=== PATIENT | male | born 1975 | race African-American/Black ===

== ENCOUNTER 2020-02-25 15:17 | Outpatient (REF) | payer OTHER, SELFPAY ==
--- NOTE | 2020-02-25 15:26 | XR_ITS ---
EXAMINATION: XR HIP, RIGHT CLINICAL INFORMATION: Pain COMPARISON: None TECHNIQUE: Two views of the right hip. FINDINGS: Bone alignment is normal. No fracture, dislocation or bone lesion is seen. The hip joint is normal. There is soft tissue calcification adjacent to the right greater trochanter questionable for trochanteric bursitis. Soft tissues are otherwise unremarkable. XR/XR hip RT w PEL1V IMPRESSION: Soft tissue calcification adjacent to the right greater trochanter questionable for calcific bursitis.
== END 2020-02-25 15:18 | disposition home or self-care (01) ==
LOC: HO.XRAY 15:17
PROVIDERS: PCP Internal Medicine; Visit Provider Internal Medicine
DX: M25.551 Pain in right hip (principal)
CPT/HCPCS: 73502

== ENCOUNTER 2020-03-25 15:00 | Outpatient (RCR) | payer OTHER, SELFPAY ==
--- NOTE | 2020-03-18 17:13 | MHC.PT.EP ---
[facility] [place] [facility] [place] [facility] [place] [facility] [address] Delia Wilcox [address] [phone] F: [phone] F: [phone] F: [phone] F: [phone] Physical Therapy Plan of Care Date of Evaluation: 03/18/20 Date of Surgery: N/A Diagnosis: trochanteric bursitis of Assessment: pt presents w/ radiographic evidence of calcific bursitis. pt would benefit from stretching and strengthening program as well as iontophoresis intervention. pt presents to physical therapy with pain, decreased range of motion, decreased strength, impaired functional mobility, impaired postural awareness, and gait deviations. pt is a good candidate for skilled PT due to age, potential remediation of impairments, typical disease/condition progression and prognosis, comorbidities, and motivation. pt would benefit from tailored strengthening and stretching exercise program, functional training, gait training, postural re-training, neuromuscular re-education, modalities as needed for pain, equipment safety demonstration. Frequency and Duration: The patient will be seen 2x/wk for 5 wks Short Term Goals: pt will be I w/ HEP to promote self-management of condition. pt will improve R hip ABD strength by 1 MMT grade to remediate gait impairments on even ground. [employer] Goals: pt will report <2/10 R hip pain w/ ascending/descending 3 stairs w/ LRAD to facilitate getting in and out of equipment at work. pt will report statistically significant improvement in self-reported outcome measure, LEFI, to facilitate return to PLOF. Treatment Plan: Modalities to reduce pain, spasms and effusion. Manual therapy to restore motion and function. Therapeutic exercise to improve strength and flexibility. Neuromuscular re-education for posture and balance. Therapeutic activities to return to functional activities of daily living. Electronically signed by: Gilda King PT, DPT Please sign and return to therapist. Thank you for your referral.
--- NOTE | 2020-04-15 16:29 | MHC.PT.DC ---
[facility] [place] [facility] [place] Office [place] Office [address] Delia Wilcox [address] [phone] F: [phone] F: [phone] F: [phone] F: [phone] Physical Therapy Discharge Report Diagnosis: trochanteric bursitis of Date of Surgery: N/A Date of Evaluation: 03/18/20 Date of Discharge: 04/15/20 Treatments to Date: 3 Cancellations to Date: 1 No Shows to Date: 5 Discharge Status: Visit Non-compliance Discharge Summary: The patient has not been seen in three weeks. He has no showed five consecutive appointments. Per [facility] policy, which the patient was aware of and signed, he is being discharged due to non-compliance. He has received two doses of dexamethasone delivered via iontophoresis. Electronically signed by: Gilda King PT, DPT Please sign and return to therapist. Thank you for your referral.
== END 2020-04-15 16:29 | disposition other institution (70) ==
LOC: HO.PT 15:00
PROVIDERS: PCP Internal Medicine; Visit Provider Internal Medicine
DX: M70.61 Trochanteric bursitis, right hip (principal)
CPT/HCPCS: 97033; 97110; 97161

== ENCOUNTER 2020-09-12 07:59 | Outpatient (REF) | payer OTHER, SELFPAY ==
[2020-09-12 10:24] LABS: Alanine Aminotransferase 53 U/L (0-40); Albumin Level 4.3 g/dL (3.5-5.0); Alkaline Phosphatase 92 U/L (39-117); Anion Gap 12 (12-20); Aspartate Amino Transferase 26 U/L (5-37); Bilirubin Total 1.4 mg/dL (0.0-1.0); Blood Urea Nitrogen 19 mg/dL (9-16); Calcium 9.6 mg/dL (8.4-10.2); Carbon Dioxide 24 mmol/L (22-29); Chloride 107 mmol/L (96-108); Cholesterol 187 mg/dL; Estimated Glomerular Filt Rate > 60; Glucose Fasting 99 mg/dL (60-99); HDL Cholesterol 38 mg/dL; LDL Cholesterol Calculated 127 mg/dl; Potassium 4.3 mmol/L (3.3-5.1); Sodium 139 mmol/L (135-145); Total Protein 7.4 g/dL (6.5-8.0); Triglycerides 111 mg/dL
[2020-09-12 10:46] LABS: Thyroid Stimulating Hormone 1.09 uIU/mL (0.32-4.0)
== END 2020-09-12 08:00 | disposition home or self-care (01) ==
LOC: HO.LAB 07:59
PROVIDERS: PCP Internal Medicine; Visit Provider Internal Medicine
DX: E78.5 Hyperlipidemia, unspecified (principal); Z83.49 Family history of other endocrine, nutritional and metabolic diseases
CPT/HCPCS: 36415; 80053; 80061; 84443

== ENCOUNTER 2021-01-01 13:01 | Emergency (ER) | payer OTHER, SELFPAY ==
--- NOTE | ~2021-01-01 | XR_ITS ---
EXAMINATION: XR HAND, RIGHT CLINICAL INFORMATION: Trauma. Bleeding COMPARISON: None TECHNIQUE: PA, lateral, and oblique views of the right hand. FINDINGS: No definite acute fracture or dislocation is evident. There is a submillimeter bony density about the ulnar aspect base of the second middle phalanx likely related to previous trauma however acute injury is not ruled out but seems less likely. There is also a 1 mm bony density about the radial base of the first distal phalanx likely related to previous trauma. There is a 1 mm bony density seen about the volar aspect of the third middle phalanx likely related to previous volar plate injury. Joint spaces are maintained. No erosive changes identified. No radiopaque foreign bodies. XR/XR hand RT min 3V IMPRESSION: No definite acute fracture or dislocation is evident. Multiple small bony densities likely related to previous trauma as described.
[2021-01-01 13:10] VITALS: BP 124/76; PULSE 69; RESP 18; TEMP 37.2; O2SAT 99; BMI 37.9
--- NOTE | 2021-01-01 15:12 | ED_ITS ---
HPI - Extremity Injury (Upper) General Chief Complaint: Extremity Injury, Upper Stated Complaint: finger inj-work inj Time Seen by Provider: 01/01/21 13:39 Source: patient Mode of arrival: ambulatory Limitations: no limitations History of Present Illness HPI narrative: 45-year-old male presenting to the ED with a work related injury to his right hand index finger where he was trying to load something onto 1 of the truck/shelf and it got stuck then when he pushed it and it fell/slammed onto his right index finger he noticed that he had some blood therefore he squeeze the blood out of the nail twice. He reports that he still having pain. Denies any other symptoms complaints concerns or injuries. Reports that he is not up-to-date on tetanus. complaint: injury to: right and finger (Index finger) Onset (ago): day(s) (Yesterday) Other Extremity Injury: right: fingers (Index finger) Other injuries: none Place: work Severity: moderate Relieving factors: none Exacerbating factors: other (Palpation) Related Data Previous Rx's Medication Instructions Recorded acetaminophen 500 mg tablet 1,000 mg PO QID PRN #14 tab 01/01/21 (Tylenol Extra Strength) cephalexin 500 mg capsule 500 mg PO Q6H 10 Days #40 cap 01/01/21 ibuprofen 800 mg tablet 800 mg PO Q8H PRN #14 tab 01/01/21 oxycodone 5 mg tablet 5 mg PO Q6H PRN #14 tab 01/01/21 Allergies Allergy/AdvReac Type Severity Reaction Status Date / Time No Known Allergies Allergy Verified 12/08/20 09:45 Review of Systems Review of Systems: Constitutional : No Weight loss, No Fever, No Chills, No Night Sweats, No Fatigue, No Malaise ENT/Mouth : No Hearing loss, No Ear Pain, No Nasal Congestion, No Sinus Pain, No Hoarseness, No sore throat, No Rhinorrhea, No Swallowing Difficulty Eyes: No Eye Pain, No Swelling, No Redness, No Foreign Body, No Discharge, No Vision Changes Cardiovascular : No Chest Pain, No SOB, No Dyspnea on Exertion, No Orthopnea, No Edema, No Palpitations Respiratory : No Cough, No Sputum, No Wheezing, No Smoke Exposure, No Dyspnea Gastrointestinal : No Nausea, No Vomiting, No Diarrhea, No Constipation, No abdominal Pain, No Hematochezia, No Melena Genitourinary : no irregular bleeding, No Dysuria, No Urinary Frequency, No Hematuria, No Urinary Incontinence, No Urgency, No Flank Pain, No Urinary Flow Changes, No Hesitancy Musculoskeletal : + left index finger joint pain at the nail, No Myalgias, No Joint Swelling Skin : No Skin Lesions, No rash Neuro : No Weakness, No Numbness, No Paresthesias, No Loss of Consciousness, No Dizziness, No Headache Psych : No Anxiety/Panic, No Depression, No SI/HI/AH/VH, No Social Issues, Heme/Lymph: No Bruising, No Bleeding,No Lymphadenopathy Endocrine : No Polyuria, No Polydipsia, No Temperature Intolerance Yes all other systems are reviewed and are negative [facility] Past Medical History Attestation statement: The following information was validated with the patient. Medical History Asthma Class 2 obesity with body mass index (BMI) of 38.0 to 38.9 in adult Family history of hypertension Family history of thyroid disease Polyarthralgia Presbyopia Right hip pain Surgical History No significant past surgical history Family History Family History Mother No problems noted. Father Pulmonary fibrosis Social History Social History Housing: Apartment Alcohol intake: current Alcohol intake frequency: holidays/special occasions only Alcohol type: wine Patient Tobacco Use Status: Former Tobacco user Tobacco use type: Cigarette e-Cigarette/Vaping Use: Never Used Second Hand Smoke Exposure: No Advance Directives: No Advance Directives Information Provided: No service: No Current occupational status: employed Current occupational exposures/hazards: No Physical Exam Vital Signs: Vital Signs: Last Vital Signs Temp 98.9 F 01/01/21 13:10 Pulse 69 01/01/21 13:10 Resp 18 01/01/21 13:10 BP 124/76 01/01/21 13:10 Pulse Ox 99 01/01/21 13:10 Body Mass Index 37.9 vital signs have been reviewed as normal and appeared to be correct. Blood pressure normal Heart rate normal. Respiration rate normal. Temperature normal. Oxygen saturation normal. Appearance: Alert. Oriented X3. No acute distress. Head: Normal external exam. Normocephalic. Atraumatic. Eyes: PERRLA. EOMI. Conjunctiva and sclera normal. Eyelids normal. ENT: Pharynx normal. Uvula midline. Moist mucous membranes. Neck: Normal inspection. Neck supple. FROM. CVS: Normal heart rate and rhythm. Respiratory: No respiratory distress. Painless inspiration. Skin: Skin warm and dry. Normal skin color. Normal skin turgor. No rashes/lesions/lacerations noted. Extremities: Patient with tenderness palpation to right index finger at the distal aspect right where the nail is with soft tissue swelling and ecchymosis noted it appears that he has a subungual hematoma that was already drained by hi mself per patient. Otherwise no signs of infection. He has full range of motion. No obvious ligamentous injury. Otherwise all other Extremities exhibit normal range of motion and nontender. Neuro: Oriented X 3. No motor deficit. No sensory deficit. Reflexes normal. Normal steady gait. No focal neuro deficits noted. Vascular: + radial pulses/+ 2 distal pedal pulses/+2 dorsalis pedis b/l. Normal cap refill. No cyanosis noted to upper extremity nails and lower extremity toes nails. Course Course Course Narrative: 45-year-old male presenting to the ED with a work related injury to his right hand index finger where he was trying to load something onto 1 of the truck/shelf and it got stuck then when he pushed it and it fell/slammed onto his right index finger he noticed that he had some blood therefore he squeeze the blood out of the nail twice. He reports that he still having pain. Denies any other symptoms complaints concerns or injuries. Reports that he is not up-to-date on tetanus. X-ray negative for any acute processes revealed chronic changes. Therefore will DC home with antibiotics and symptomatic treatment instructions to follow up with [facility] his primary care provider and to return if any new or worsening symptoms. Patient understands agrees with this plan. MDM - Extremity Injury (Upper) Medical Records Attestation: I reviewed the patient's medical records. Imaging Data Right hand x-ray: Attestation: I personally reviewed and interpreted this imaging study as follows: Radiologist's impression: FINDINGS: No definite acute fracture or dislocation is evident. There is a submillimeter bony density about the ulnar aspect base of the second middle phalanx likely related to previous trauma however acute injury is not ruled out but seems less likely. There is also a 1 mm bony density about the radial base of the first distal phalanx likely related to previous trauma. There is a 1 mm bony density seen about the volar aspect of the third middle phalanx likely related to previous volar plate injury. Joint spaces are maintained. No erosive changes identified. No radiopaque foreign bodies. XR/XR hand RT min 3V IMPRESSION: No definite acute fracture or dislocation is evident. ? Multiple small bony densities likely related to previous trauma as described. Discharge Plan Discharge Clinical Impression: Sprain of right index finger, Traumatic ecchymosis of finger, Subungual hematoma of index finger Patient Disposition: Home, Self-Care Instructions: Jammed Finger (ED), Subungual Hematoma (ED), Ecchymosis (ED) Prescriptions: New cephalexin 500 mg capsule 500 mg PO Q6H 10 Days Qty: 40 RF: 0 ibuprofen 800 mg tablet 800 mg PO Q8H PRN (Reason: pain) Qty: 14 RF: 0 acetaminophen [Tylenol Extra Strength] 500 mg tablet 1,000 mg PO QID PRN (Reason: fever or pain) Qty: 14 RF: 0 oxycodone 5 mg tablet 5 mg PO Q6H PRN (Reason: pain) Qty: 14 RF: 0 Referrals: [facility] [Provider Group] - 2 days Isabella Monson MD [Primary Care Provider] - 2 days Stand Alone Forms: Work/School Release Print Language: [place]
[2021-01-01] MEDS: Diphth,Pertus(ACell),Tet Adult 0.5 ML SYRINGE IM (15:16)
== END 2021-01-01 15:36 | disposition home or self-care (01) ==
PROVIDERS: Emergency Provider Emergency Medicine; PCP Internal Medicine
DX: S63.610A Unspecified sprain of right index finger, initial encounter (principal); S60.121A Contusion of right index finger with damage to nail, initial encounter; W22.09XA Striking against other stationary object, initial encounter; Y93.89 Activity, other specified; Y92.812 Truck as the place of occurrence of the external cause; Y99.0 Civilian activity done for income or pay
CPT/HCPCS: 73130; 90471; 90715; 99283; 99284

== ENCOUNTER → 2021-05-20 09:00 | Outpatient (BNVA) | payer SELFPAY | PROVIDERS: PCP Internal Medicine; Visit Provider Physician Assistant Medical | DX: Z02.79 Encounter for issue of other medical certificate (principal) ==

== ENCOUNTER 2021-06-24 08:31 | Outpatient (REF) | payer OTHER, SELFPAY ==
--- NOTE | ~2021-06-24 | US_ITS ---
EXAMINATION: US COMPLETE ABDOMEN WITH LIVER ELASTOGRAPHY CLINICAL INFORMATION: Elevation of transaminase. COMPARISON: None. TECHNIQUE: Real-time imaging of the abdominal viscera. Noninvasive ultrasound liver fibrosis assessment is performed using Boby ElastPQ point quantification shear wave elastography (2D-SWE) with a C5-2 MHz transducer. Multiple elastography samples are obtained. FINDINGS: PANCREAS: Normal. The visualized pancreatic head and body are normal in appearance. The remainder of the pancreas is obscured from visualization by the overlying bowel gas. ABDOMINAL AORTA: The proximal, middle, and distal aortic segments are normal in caliber. INFERIOR VENA CAVA: Visualized portions are normal. LIVER: The liver demonstrates normal size, contour and increased echogenicity. No focal lesion or intrahepatic biliary duct dilatation. The right lobe measures 15.1 cm in length. The left lobe measures 10.4 cm in length. Portal flow is hepatopedal. Shear wave liver elastography median stiffness is 1.69 m/s (reference: normal median stiffness is 1.3 m/s or less). IQR/median stiffness to assess sampling precision is 0.14 (reference: good quality data set is IQR/median stiffness of 0.15 or less). GALLBLADDER: Normal. The gallbladder is physiologically distended without evidence of stones, sludge, polyps, wall thickening or pericholecystic fluid. COMMON BILE DUCT: Normal in caliber measuring 0.2 cm in diameter. RIGHT KIDNEY: Normal. No hydronephrosis. No renal calculi or focal parenchymal lesions. The kidney measures 10.8 cm in maximum dimension. LEFT KIDNEY: Normal. No hydronephrosis. No renal calculi or focal parenchymal lesions. The kidney measures 11.0 cm in maximum dimension. SPLEEN: Normal. The spleen measures 11.0 cm in maximum dimension. FREE FLUID: None. US/US abdomen comp w elastography IMPRESSION: 1. Diffuse hepatic steatosis without focal lesion. 2. Liver elastography: Median liver stiffness measures 1.69 m/s corresponding to cACLD ruled out. REFERENCE: Society of Radiologists in Ultrasound Liver Stiffness Thresholds (2020): LIVER STIFFNESS THRESHOLDS: *Liver Stiffness equal or less than 1.3 m/s: High probability of being normal. *Liver Stiffness less than 1.7 m/s: In the absence of other known clinical signs, rules out compensated advanced chronic liver disease. *Liver Stiffness 1.7-2.1 m/s: Suggestive of compensated advanced chronic liver disease but need further test for confirmation. *Liver Stiffness over 2.1 m/s: Rules in compensated advanced chronic liver disease. *Liver Stiffness over 2.4 m/s: Suggestive of clinically significant portal hypertension. QUALITY OF DATA SET: *IQR/Median value equal or less than 0.15 implies a quality data set. *IQR/Median value over 0.15 implies a poor quality data set. SIGNIFICANT CHANGE FROM PRIOR EXAM: Significant change if liver stiffness measurement is 10% or greater from prior exam. OTHER CONSIDERATIONS: The stage of liver fibrosis may be overestimated in the setting of acute hepatitis, liver inflammation, elevated liver function tests, hepatic vascular congestion, obstructive cholestasis, non-fasting state, and infiltrative diseases such as amyloidosis and lymphoma. In some patients with NAFLD, the liver stiffness thresholds for compensated advanced chronic liver disease may be lower. In causes other than viral hepatitis and NAFLD, liver stiffness thresholds are not well established.
== END 2021-06-24 08:32 | disposition home or self-care (01) ==
LOC: HO.US 08:31
PROVIDERS: Visit Provider Internal Medicine
DX: R74.01 Elevation of levels of liver transaminase levels (principal)
CPT/HCPCS: 76705; 76981

== ENCOUNTER 2022-10-12 14:53 | Outpatient (AMB) | payer OTHER, SELFPAY ==
[2022-10-12 15:00] VITALS: BP 122/70; PULSE 69; TEMP 36.6; O2SAT 98; BMI 37.8
--- NOTE | 2022-10-12 15:00 | AM.OFFWIN_ITS ---
Intake Vital Signs 10/12/22 15:00 Height 5 ft 6 in Weight 234 lb BMI 37.8 BP 122/70 Blood Pressure Location Lt brachial Position Sitting Pulse 69 Pulse Source Pulse Oximeter Temp 97.9 F Temp Source Temporal Artery Scan Pulse Oximetry (%) 98 Intake Visit Reasons: EP Rash Intake Note: pt is here for c/o rash on chest and back, raised rash in patches Patient Tobacco Use Status: Former Tobacco user Allergies No Known Allergies Allergy (Verified 10/12/22 16:02) Medication List - Last Reconciled 10/12/22 by Miller Jiménez MD prednisone 60 mg (3 x 20 mg) PO DAILY Do you need a note to return to daycare/school/sports/work: Yes HPI EP Rash HPI Details 47-year-old male presents to the office for a sick visit. Patient has a rash on his chest which started 2 days ago. Predominant symptom is itching. [facility] Medical History Asthma Class 2 obesity with body mass index (BMI) of 38.0 to 38.9 in adult Family history of hypertension Family history of thyroid disease Polyarthralgia Presbyopia Right hip pain Transaminitis Surgical History No significant past surgical history Family History Mother No problems noted. Father Pulmonary fibrosis Social History Housing: Apartment Alcohol intake: current Alcohol intake frequency: holidays/special occasions only Alcohol type: wine Patient Tobacco Use Status: Former Tobacco user Tobacco use type: Cigarette e-Cigarette/Vaping Use: Never Used Second Hand Smoke Exposure: No service: No Current occupational status: employed Current occupational exposures/hazards: No Cognitive needs: No Hearing needs: No Vision needs: No Physical Exam Vital Signs: Last Vital Signs Temp 97.9 F 10/12/22 15:00 Pulse 69 10/12/22 15:00 BP 122/70 10/12/22 15:00 Pulse Ox 98 10/12/22 15:00 BMI result Body Mass Index 37.8 Skin Other: Erythematous rash on the chest extending below the left arm. Assessment & Plan Assessment & Plan (1) Irritant dermatitis: Code(s): L24.9 - Irritant contact dermatitis, unspecified cause Plan: Prednisone prescribed. If symptoms do not improve to follow-up here. Medications: New prednisone 60 mg (3 x 20 mg) PO DAILY 9 tabs 0RF Coding Level of Care Code Est Pt Level 3 (77016) Diagnoses Irritant dermatitis L24.9
== END 2022-10-12 16:57 | disposition home or self-care (01) ==
PROVIDERS: PCP Internal Medicine; Visit Provider Internal Medicine
DX: L24.9 Irritant contact dermatitis, unspecified cause (principal)
CPT/HCPCS: 99213

== ENCOUNTER 2022-10-14 14:24 | Outpatient (AMB) | payer OTHER, SELFPAY ==
[2022-10-14 14:42] VITALS: BP 120/70; PULSE 72; TEMP 36.1; O2SAT 97; BMI 38.0
--- NOTE | 2022-10-14 14:42 | AM.OFFWIN_ITS ---
Intake Vital Signs 10/14/22 14:42 Height 5 ft 6 in Weight 235 lb 8 oz BMI 38.0 BP 120/70 Blood Pressure Location Lt brachial Position Sitting Pulse 72 Pulse Source Pulse Oximeter Temp 96.9 F Temp Source Temporal Artery Scan Pulse Oximetry (%) 97 Oxygen Delivery Method Room Air Intake Visit Reasons: EP, Rash, not getting better Intake Note: Pt is here c/o having a rash that is not improving. Pt states he was seen last week in the walk in and given a topical cream, pt states he had to leave work early because he has been way to itchy even with the medication sent. Patient Tobacco Use Status: Former Tobacco user Allergies No Known Allergies Allergy (Verified 10/14/22 14:54) Medication List - Last Reconciled 10/14/22 by Miller Jiménez MD hydrocortisone 2.5% 1 appl topical BID PRN prednisone 10 mg PO DAILY Do you need a note to return to daycare/school/sports/work: No HPI EP, Rash, not getting better HPI Details 47-year-old male presents to the office for a sick visit. Patient was seen last week for a rash over his chest. Prednisone was helping the rash but it did not completely resolved. Continues to have itching symptoms. [facility] Medical History Asthma Class 2 obesity with body mass index (BMI) of 38.0 to 38.9 in adult Family history of hypertension Family history of thyroid disease Polyarthralgia Presbyopia Right hip pain Transaminitis Surgical History No significant past surgical history Family History Mother No problems noted. Father Pulmonary fibrosis Social History Housing: Apartment Alcohol intake: current Alcohol intake frequency: holidays/special occasions only Alcohol type: wine Patient Tobacco Use Status: Former Tobacco user Tobacco use type: Cigarette e-Cigarette/Vaping Use: Never Used Second Hand Smoke Exposure: No service: No Current occupational status: employed Current occupational exposures/hazards: No Cognitive needs: No Hearing needs: No Vision needs: No Physical Exam Vital Signs: Last Vital Signs Temp 96.9 F 10/14/22 14:42 Pulse 72 10/14/22 14:42 BP 120/70 10/14/22 14:42 Pulse Ox 97 10/14/22 14:42 Oxygen Delivery Method Room Air 10/14/22 14:42 BMI result Body Mass Index 38.0 Skin Other: Erythematous rash over the front of the chest. Wheals present. Assessment & Plan Assessment & Plan (1) Contact dermatitis: Code(s): L25.9 - Unspecified contact dermatitis, unspecified cause Plan: Prednisone tapering dose given. Hydrocortisone cream for symptomatic relief. Note for work given. Medications: New prednisone 6 pills by mouth day 1, 6 pills by mouth day 2, 5 pills by mouth day 3, 4 pills by mouth day 4, 3 pills by mouth day 5, 2 pills by mouth day 6, 1 pill by mouth day 7 and 1 pill by mouth day 8. 10 mg PO DAILY 28 tabs 0RF hydrocortisone 2.5% 1 appl topical BID PRN 28 grams 1RF skin irritation Coding Level of Care Code Est Pt Level 3 (59243) Diagnoses Contact dermatitis L25.9
== END 2022-10-14 16:02 | disposition home or self-care (01) ==
PROVIDERS: PCP Internal Medicine; Visit Provider Internal Medicine
DX: L25.9 Unspecified contact dermatitis, unspecified cause (principal)
CPT/HCPCS: 99213

== ENCOUNTER 2022-10-29 14:29 | Emergency (ER) | payer OTHER, SELFPAY ==
[2022-10-29 14:31] VITALS: BP 135/79; PULSE 65; RESP 19; TEMP 35.8; O2SAT 98; BMI 38.0
--- NOTE | 2022-10-29 14:33 | ED.NECK ---
HPI - Neck Pain/Injury General Chief Complaint: General Medical Stated Complaint: l side neck pain Time Seen by Provider: 10/29/22 15:17 Source: patient Mode of arrival: ambulatory Limitations: no limitations History of Present Illness HPI Narrative: Patient is a 47-year-old [place]ian-speaking male with a past medical history of transaminitis, asthma, polyarthralgia presenting to the emergency department with complaint of left lateral neck pain radiating to left shoulder since Monday. He denies any pain radiating down left arm. He denies any numbness or tingling to left arm. He denies any fall or other trauma. Denies recent heavy lifting. He denies any headaches or vision changes. He denies any chest pain or shortness of breath. He describes the pain as intermittent cramping. complaint: neck pain Onset (ago): day(s) Radiation: left lateral Severity scale (1-10): 7 Quality: aching and spasming Duration: intermittent Relieving factors: remaining still Exacerbating factors: movement of neck Associated symptoms: none Treatments prior to arrival: none Related Data Previous Rx's Medication Instructions Recorded hydrocortisone 2.5 % topical cream 1 appl topical BID PRN skin 10/14/22 irritation #28 grams prednisone 10 mg tablet 10 mg PO DAILY #28 tabs 10/14/22 cyclobenzaprine 5 mg tablet 5 mg PO TID PRN muscle spasm #12 10/29/22 tabs lidocaine 5 % topical patch 1 patch topical DAILY #15 ea 10/29/22 Allergies Allergy/AdvReac Type Severity Reaction Status Date / Time No Known Allergies Allergy Verified 10/14/22 14:54 Review of Systems Review of Systems: As per HPI. Yes all other systems are reviewed and are negative Constitutional: Constitutional: Reports as per HPI [facility] Past Medical History Medical History Asthma Class 2 obesity with body mass index (BMI) of 38.0 to 38.9 in adult Family history of hypertension Family history of thyroid disease Polyarthralgia Presbyopia Right hip pain Transaminitis Surgical History No significant past surgical history Family History Family History Mother No problems noted. Father Pulmonary fibrosis Social History Social History Housing: Apartment Alcohol intake: current Alcohol intake frequency: holidays/special occasions only Alcohol type: wine Patient Tobacco Use Status: Former Tobacco user Tobacco use type: Cigarette e-Cigarette/Vaping Use: Never Used Second Hand Smoke Exposure: No Advance Directives: No Advance Directives Information Provided: No service: No Current occupational status: employed Current occupational exposures/hazards: No Cognitive needs: No Hearing needs: No Vision needs: No Physical Exam Vital Signs: Vital Signs: Last Vital Signs Temp 96.4 F L 10/29/22 14:31 Pulse 65 10/29/22 14:31 Resp 19 10/29/22 14:31 BP 135/79 10/29/22 14:31 Pulse Ox 98 10/29/22 14:31 O2 Del Method Room Air 10/29/22 14:31 BMI result Body Mass Index 38.0 Vital signs have been reviewed and appear to be correct. Blood pressure normal. Heart rate normal. Respiratory rate normal. Temperature normal. Oxygen saturation normal. Const: General: cooperative, healthy appearing and no acute distress Orientation/consciousness: oriented to person, oriented to place, oriented to time and patient oriented x3 Limitations: no limitations HEENT: Head: Yes normocephalic and Yes atraumatic Ears: external ears normal General nose exam: Normal external nose present Face and sinus: Yes face symmetric Mouth: oropharynx normal and moist mucous membranes Throat: Yes uvula midline Eyes: Pupils: Equal, round and reactive pupils present Neck: Neck: Yes normal visual inspection, Yes full ROM, Yes no meningeal signs and Yes supple Resp: Effort & Inspection: normal respiratory effort and able to speak in complete sentences Auscultation: clear to auscultation bilaterally Cardio: Rate: regular rate Rhythm: regular rhythm Heart sounds: S1 normal heart sound present and S2 normal heart sound present GI: Palpation (GI): Soft to palpation and nontender Auscultation: normoactive bowel sounds : General: Yes no CVA tenderness Back/Spine/Pelvis: Back: no CVA tenderness Cervical Spine: normal cervical lordosis, cervical ROM normal, cervical muscular tenderness (left lateral), pain with cervical ROM, No Cervical spine tenderness and No step off deformity Skin: General skin exam: elasticity normal and turgor normal Neuro: General: oriented to person, oriented to place, oriented to time, patient oriented x3, moves all extremities, no meningeal signs, no focal motor deficits and CN's II-XI intact bilaterally Cranial nerves: Yes Equal, round and reactive pupils present Cognition (Neuro): normal cognition Extrem: General: Yes full ROM, Yes no pedal edema and Yes no calf tenderness Psych: Mental Status: mental status grossly normal Affect: normal affect Thought process: Normal thought process present Course Course Course Narrative: RME: 47-year-old male with a past medical history of transaminitis, asthma, polyarthralgia, [place]ian-speaking presenting to the ED complaining of left neck pain radiating to left shoulder x4 days described as feeling like cramp . Admits woke up w/the pain. denies injury/heavy lifting. denies [place], CP EKG ordered Full HPI, ROS and PE to be performed by primary ED provider. Medical Decision Making Medical Decision Making [facility] Narrative: Patient is a 47-year-old [place]ian-speaking male with a past medical history of transaminitis, asthma, polyarthralgia presenting to the emergency department with complaint of left lateral neck pain radiating to left shoulder since Monday. On exam patient is awake, A+Ox3, VS WNL, afebrile, normal neurological exam without focal deficits, no midline cervical spinal tenderness, tenderness palpation of left lateral paraspinal muscles as well as left trapezius, full range of motion to left shoulder, 5/5 strength to bilateral upper extremities, DTRs 2+. Given reported symptoms and physical exam findings, initial differential includes cervical muscle strain, cervical radiculopathy. Unlikely carotid artery dissection, spinal fracture, ligamentous injury. Will prescribe cyclobenzaprine and lidocaine patches, advised patient to alternate Tylenol and ibuprofen as well as apply heat intermittently throughout the day. Instructed patient to apply heat directly over lidocaine patches. Instructed patient follow-up with PCP. Return precautions discussed at bedside. Patient verbalized understanding of and agreement with plan. Differential Diagnosis Differential Diagnoses: The differential diagnosis associated with the presentation includes As per MDM External Record Review External record reviewed: Inpatient record, Office record and Outpatient record Prescription Management I considered prescription management with: Pain Medication and Other Discharge Plan Discharge Clinical Impression: Cervical muscle strain Patient Disposition: Home, Self-Care Instructions: Cervical Strain (DC) Additional Instructions: You were evaluated in the emergency department with complaint of neck pain. Your imaging did not show any evidence of a fracture or other concerning findings. Your pain is likely related to a muscle strain. We recommend taking 600mg ibuprofen or 650mg Tylenol. If necessary, you can alternate these medications every three hours. For example, at noon take Tylenol, then at 3:00 take ibuprofen, then at 6:00 take Tylenol, etc. You are also being prescribed a muscle relaxer which you can use up to every 8 hours as needed. You are being prescribed topical lidocaine patches which you can wear for up to 12 hours in a 24 hour period, do not apply heat directly over the patches. You should follow up with your primary care provider as you may require physical therapy to improve your symptoms. Return to the emergency department if you develop worsening neck pain or stiffness, new weakness, numbness, or tingling to your arm, severe headaches, or any other concerning symptoms. Prescriptions: New cyclobenzaprine 5 mg tablet 5 mg PO TID PRN (Reason: muscle spasm) Qty: 12 0RF lidocaine 5 % adhesive patch,medicated 1 patch topical DAILY Qty: 15 0RF Rx Instructions: leave on most painful area for up to 12 hrs No Action prednisone 10 mg tablet 10 mg PO DAILY Qty: 28 0RF Rx Instructions: 6 pills by mouth day 1, 6 pills by mouth day 2, 5 pills by mouth day 3, 4 pills by mouth day 4, 3 pills by mouth day 5, 2 pills by mouth day 6, 1 pill by mouth day 7 and 1 pill by mouth day 8. hydrocortisone 2.5 % cream 1 appl topical BID PRN (Reason: skin irritation) Qty: 28 1RF
--- NOTE | 2022-10-29 14:35 | ECG_ITS ---
Test Reason : LEFT SHOULDER PAIN Blood Pressure : / mmHG Vent. Rate : 061 BPM Atrial Rate : 061 BPM P-R Int : 132 ms QRS Dur : 088 ms QT Int : 384 ms P-R-T Axes : 031 -01 016 degrees QTc Int : 386 ms Normal sinus rhythm Minimal voltage criteria for LVH, may be normal variant ( R in aVL ) Nonspecific ST abnormality Abnormal ECG No previous ECGs available Referred By: Jennifer Geller Electronically Signed By:SANTOSH SOW
[2022-10-29 17:57] VITALS: BP 133/78; PULSE 70; RESP 16; TEMP 36.1; O2SAT 99
== END 2022-10-29 17:59 | disposition home or self-care (01) ==
PROVIDERS: Emergency Provider Emergency Medicine; PCP Internal Medicine
DX: S16.1XXA Strain of muscle, fascia and tendon at neck level, initial encounter (principal); X58.XXXA Exposure to other specified factors, initial encounter; M25.512 Pain in left shoulder; Z87.891 Personal history of nicotine dependence; Y93.9 Activity, unspecified; Y92.9 Unspecified place or not applicable; Y99.9 Unspecified external cause status
CPT/HCPCS: 93005; 99283; 99284

== ENCOUNTER 2022-11-05 10:16 | Outpatient (AMB) | payer OTHER, SELFPAY ==
--- NOTE | 2022-11-05 10:21 | MHC.OFFWIV ---
Intake Vital Signs 11/05/22 10:23 Weight 106.594 kg BP 110/70 Blood Pressure Location Rt brachial Position Sitting Pulse 67 Pulse Source Pulse Oximeter Temp 98.1 F Temp Source Oral Pulse Oximetry (%) 99 Oxygen Delivery Method Room Air Intake Visit Reasons: EST/left side neck/head pain Intake Note: Pt states since last Monday c/o of pain in his head and LT side of neck. Went to [facility] ED last week for same issue. No vision changes or dizziness. Patient Tobacco Use Status: Former Tobacco user Allergies No Known Allergies Allergy (Verified 11/05/22 10:26) HPI HPI Comments History of Present Illness Details 1025 47-year-old male presents with neck discomfort/tightness particularly on the left-hand side ongoing for the past week or so, patient denies any inciting trauma. Patient describes the pain as a crampy sensation/spasming in his neck. Currently taking muscle relaxers with little to no relief. Denies radiation of pain. He denies numbness or tingling. Denies falls. Denies any heavy lifting. He denies headache, vision changes, dizziness, weakness, nausea, vomiting, abdominal pain, chest pain, shortness of breath. Physical exam with left-sided cervical paraspinous muscle spasms no midline tenderness. No meningeal signs. This is likely cervical paraspinous muscle spasms. Unlikely epidural abscess, cervical myelopathy, intracranial hemorrhage, stroke, posterior stroke, encephalitis or meningitis Plan prednisone, patient to continue cyclobenzaprine, Lidoderm, naproxen. Educated patient on diagnosis and treatment plan, answered all question, patient verbalizes understanding. At this time patient will be discharged home, advised to return with new or worsening symptoms. Educated on worrisome signs and symptoms and when to return. At this time I feel comfortable discharge home. [facility] Medical History Transaminitis Class 2 obesity with body mass index (BMI) of 38.0 to 38.9 in adult Polyarthralgia Presbyopia Family history of thyroid disease Family history of hypertension Asthma Right hip pain Surgical History No significant past surgical history Family History Mother No problems noted. Father Pulmonary fibrosis Social History Housing: Apartment Alcohol intake: never Patient Tobacco Use Status: Former Tobacco user Tobacco use type: Cigarette e-Cigarette/Vaping Use: Never Used Second Hand Smoke Exposure: No service: No Current occupational status: employed Current occupational exposures/hazards: No Cognitive needs: No Hearing needs: No Vision needs: No Review of Systems Const Details: Constitutional : No Weight loss, No Fever, No Chills, No Fatigue, No Malaise ENT/Mouth : No sore throat, No Rhinorrhea Eyes: No Eye Pain, No Swelling, No Redness Cardiovascular : No Chest Pain, No SOB, No Dyspnea on Exertion, No Orthopnea, No Edema, No Palpitations Respiratory : No Cough, No Sputum, No Wheezing Gastrointestinal : No Nausea, No Vomiting, No Diarrhea, No Constipation, No abdominal Pain, No Hematochezia, No Melena Genitourinary : No Dysuria, No Urinary Frequency, No Hematuria, Musculoskeletal : No joint pain, No Myalgias, No Joint Swelling, + neck discomfort Skin : No Skin Lesions, No rash Neuro : No Weakness, No Numbness, No Dizziness, No Headache Psych : No Anxiety/Panic, No Depression All other systems reviewed and are negative All systems reviewed & are unremarkable except as noted in HPI and below Physical Exam Vital Signs: vss Appearance: Alert.? Oriented X3.? No acute distress.? Head: Normocephalic, atraumatic, no step-offs or deformities Eyes: Pupils equal, round and reactive to light.? ENT: Pharynx normal.? Neck: Normal inspection.? left-sided cervical paraspinous muscle spasms no midline tenderness. No meningeal signs. CVS: Normal heart rate and rhythm.? Pulses normal.? Respiratory: No respiratory distress.? Breath sounds normal.? Abdomen: Soft and nontender.? Skin: Skin warm and dry.? Normal skin color.? Normal skin turgor.? Extremities: No lower extremity edema.? No calf ttp. 5/5 strength to bilateral upper and lower extremities Neuro: Oriented X 3.? No motor deficit.? No sensory deficit. CN 2-12 intact . Normal [id number], [id number] steady tandem gait normal coordination. Negative Romberg and pronator drift Assessment & Plan Assessment & Plan (1) Cervical paraspinous muscle spasm: Code(s): M62.838 - Other muscle spasm Plan Take your medications as prescribed. If you were prescribed antibiotics today, it is important that you take your medication to their entirety, do not skip any doses, do not finish them early. Follow-up with your primary care provider this week. Return to the emergency department with new or worsening symptoms. Such as fevers, chills, chest pain, shortness of breath, nausea, vomiting, dizziness, headache, vision changes, lethargy In case of emergency call 911 Medications: New prednisone 40 mg (2 x 20 mg) PO DAILY 10 tabs 0RF 5 days naproxen 500 mg PO BID PRN 14 tabs 0RF pain lidocaine 4% (AsperFlex (lidocaine)) 1 patch topical DAILY PRN 15 ea 0RF pain Coding Level of Care Code Est Pt Level 3 (44603) Diagnoses Cervical paraspinous muscle spasm M62.838
[2022-11-05 10:23] VITALS: BP 110/70; PULSE 67; TEMP 36.7; O2SAT 99
== END 2022-11-05 10:34 | disposition home or self-care (01) ==
PROVIDERS: PCP Internal Medicine; Visit Provider Physician Assistant
DX: M62.838 Other muscle spasm (principal)
CPT/HCPCS: 99051; 99213

== ENCOUNTER 2022-11-13 13:04 | Emergency (ER) | payer OTHER, SELFPAY ==
--- NOTE | ~2022-11-13 | XR_ITS ---
EXAMINATION: XR CERVICAL SPINE CLINICAL INFORMATION: Posterior neck pain. Suspected arthritis. COMPARISON: None available. TECHNIQUE: 3 views of the cervical spine were obtained. A total of 4 images were obtained. FINDINGS: There are no prevertebral soft tissue or bony abnormalities demonstrated. No compression fractures or subluxations are identified. Alignment is maintained at the atlanto-axial articulation. Moderate multilevel degenerative spondylosis at mid to lower cervical spine with nonspecific straightening of the cervical spine. The C1-C2 alignment is intact. Both lung apices are clear. XR/XR cervical spine 3V IMPRESSION: 1. Straightening of the cervical spine and superimposed moderate multilevel degenerative spondylosis at mid to lower cervical spine. 2. Normal-appearing prespinal soft tissues anterior both lung apices.
[2022-11-13 14:04] VITALS: BP 121/88; PULSE 77; RESP 18; TEMP 36.6; O2SAT 98; BMI 37.1
--- NOTE | 2022-11-13 14:11 | ED.GENADULT ---
HPI - General Adult General Chief complaint: Neck Pain/Injury Stated complaint: back of neck pain Time Seen by Provider: 11/13/22 14:57 Source: patient Mode of arrival: ambulatory Limitations: language barrier ( Polish-speaking medical staff specialist utilized) History of Present Illness HPI narrative: patient is a 47-year-old male presents emergency department reporting persistent left lateral neck pain radiating to the left shoulder for approximately 1 month. Pain is constant in nature and described as a spasming and cramping that is made worse with movement of the neck. Denies radiation into the arm, numbness tingling or cold sensation to the arm. Denies any precipitating injury. Denies midline neck pain. Denies any headache, dizziness, lightheadedness, chest pain, shortness of breath. Related Data Previous Rx's Medication Instructions Recorded hydrocortisone 2.5 % topical cream 1 appl topical BID PRN skin 10/14/22 irritation #28 grams prednisone 10 mg tablet 10 mg PO DAILY #28 tabs 10/14/22 cyclobenzaprine 5 mg tablet 5 mg PO TID PRN muscle spasm #12 10/29/22 tabs lidocaine 5 % topical patch 1 patch topical DAILY #15 ea 10/29/22 lidocaine 4 % topical patch 1 patch topical DAILY PRN pain #15 11/05/22 (AsperFlex (lidocaine)) ea naproxen 500 mg tablet 500 mg PO BID PRN pain #14 tabs 11/05/22 prednisone 20 mg tablet 40 mg (2 x 20 mg) PO DAILY 5 days 11/05/22 #10 tabs cyclobenzaprine 10 mg tablet 10 mg PO TID PRN muscle spasm #14 11/13/22 tabs naproxen 500 mg tablet 500 mg PO BID PRN pain #10 tabs 11/13/22 Allergies Allergy/AdvReac Type Severity Reaction Status Date / Time No Known Allergies Allergy Verified 11/05/22 10:26 Review of Systems Review of Systems: Yes all other systems are reviewed and are negative PMFSH Past Medical History Attestation statement: The following information was validated with the patient. Source: old records reviewed Medical History Transaminitis Class 2 obesity with body mass index (BMI) of 38.0 to 38.9 in adult Polyarthralgia Presbyopia Family history of thyroid disease Family history of hypertension Asthma Right hip pain Surgical History No significant past surgical history Family History Family History Mother No problems noted. Father Pulmonary fibrosis Social History Social History Housing: Apartment Alcohol intake: never Patient Tobacco Use Status: Former Tobacco user Tobacco use type: Cigarette Smoked in Last 30 Days: No e-Cigarette/Vaping Use: Never Used Second Hand Smoke Exposure: No Use of substances other than those prescribed or required for medical reasons: No Advance Directives: No Advance Directives Information Provided: Yes service: No Current occupational status: employed Current occupational exposures/hazards: No Cognitive needs: No Hearing needs: No Vision needs: No Physical Exam ED Vital Signs: Vital Signs - 24 hr 11/13/22 14:04 11/13/22 17:12 Temperature 98 F Pulse Rate 77 70 Respiratory Rate 18 16 Blood Pressure 121/88 125/75 Pulse Oximetry 98 100 Oxygen Delivery Method Room Air Room Air BMI result Body Mass Index 37.1 Appearance: Alert.?Oriented to person, place and time. No acute distress.?Normal affect. ENT: Pharynx normal.?? Neck: Normal inspection.? Neck supple.?? No midline cervical spine tenderness, step-offs, deformities. Palpable tenderness along the left lateral paraspinal muscles in addition to left the trapezius CVS: Heart sounds normal. Normal heart rate and rhythm.? Pulses normal.?? Respiratory: No respiratory distress.? Lung sounds clear to auscultation bilaterally??? Skin: Skin warm and dry.? Normal skin color.?? Extremities: No lower extremity edema.? full AROM to the bilateral shoulders. Neuro: Moves all extremities spontaneously. Sensation intact bilaterally. CN II-XII intact. No focal neuro deficits. Ambulates with normal steady gait. Course Course Course Narrative: RME: 47 yold male presents to the ED for posteior rneck pain for one moth without any trauma. Patent states no chest pain of shortness of breath. Cervical spine xray ordered Reevaluation(s) Reevaluation #1: XR revealing straightening of the cervical spine concerning for muscular in addition to multilevel degenerative changes. I discussed these findings with patient. He states that in the past he has taken Flexeril and an anti-inflammatory at the same time for similar pain which did help. He states that over the past few weeks he took the medication separately. He would like to trial a course of treatment while taking the medications in combination which I think is reasonable and he will follow up with his outpatient primary care provider. We reviewed worrisome signs and symptoms that would warrant re-evaluation in the emergency department. He is stable for discharge. Time: 16:40 Reevaluation #2: Medical Decision Making Medical Decision Making [facility] Narrative: Patient is a 47-year-old male with past medical history of transaminitis, asthma, polyarthralgia presenting to emergency department for evaluation of left lateral neck pain that has been persistent as per HPI. patient was seen in the emergency department 10/29/2022 and received prescription for cyclobenzaprine in addition to Lidoderm patch, was subsequently seen at the walk-in clinic 2022 and received prescription for prednisone and naproxen. Pain has been persistent since its onset it has been unrelieved with any of the aforementioned medications. He states that he has had a similar pain in the past which responded to Flexeril. Assurance was provided that this is the same medication as cyclobenzaprine which again he mentioned did alleviate his pain this time Upon physical examination full AROM is present to the neck, no meningismus, tenderness present as per physical examination. Will review XR imaging ordered by E provider though I have a low suspicion for any fracture or subluxation without precipitating injury. Discussed with patient cannot completely exclude disc herniation, at this time no evidence for emergent CT/ MRI imaging. There are no focal neurological deficits in the extremities are neurovascularly intact distally. Pain is most likely consistent with a cervical strain verses cervical radiculopathy. He has trialed skeletal muscle relaxants, corticosteroids, and NSAID without significant improvement. I discussed with patient that he will most likely require further follow-up with PCP, and consideration for physical therapy verses evaluation with specialist for further management. He has verbalized understanding of this. Differential Diagnosis Differential Diagnoses: The differential diagnosis associated with the presentation includes ( As noted above) Independent Interpretation I performed an independent interpretation of an: Plain X-Ray Radiology Impression Discussion of test interpretation with radiology: I have reviewed the radiologist's reading. Radiologist Impression: XR/XR cervical spine 3V IMPRESSION: 1. Straightening of the cervical spine and superimposed moderate multilevel degenerative spondylosis at mid to lower cervical spine. 2. Normal-appearing prespinal soft tissues anterior both lung apices. External Record Review External record reviewed: Outpatient record (as noted above) Tests considered The following testing was considered but not selected: as noted above Prescription Management I considered prescription management with: Pain Medication Discharge Plan Discharge Clinical Impression: Degenerative joint disease of cervical spine Patient Disposition: Home, Self-Care Instructions: Neck Pain (ED) Prescriptions: New cyclobenzaprine 10 mg tablet 10 mg PO TID PRN (Reason: muscle spasm) Qty: 14 0RF naproxen 500 mg tablet 500 mg PO BID PRN (Reason: pain) Qty: 10 0RF No Action cyclobenzaprine 5 mg tablet 5 mg PO TID PRN (Reason: muscle spasm) Qty: 12 0RF lidocaine 5 % adhesive patch,medicated 1 patch topical DAILY Qty: 15 0RF Rx Instructions: leave on most painful area for up to 12 hrs prednisone 20 mg tablet 40 mg PO DAILY 5 Days Qty: 10 0RF naproxen 500 mg tablet 500 mg PO BID PRN (Reason: pain) Qty: 14 0RF lidocaine [AsperFlex (lidocaine)] 4 % adhesive patch,medicated 1 patch topical DAILY PRN (Reason: pain) Qty: 15 0RF prednisone 10 mg tablet 10 mg PO DAILY Qty: 28 0RF Rx Instructions: 6 pills by mouth day 1, 6 pills by mouth day 2, 5 pills by mouth day 3, 4 pills by mouth day 4, 3 pills by mouth day 5, 2 pills by mouth day 6, 1 pill by mouth day 7 and 1 pill by mouth day 8. hydrocortisone 2.5 % cream 1 appl topical BID PRN (Reason: skin irritation) Qty: 28 1RF Referrals: Isabella Monson MD [Primary Care Provider] - Interventions: ED Discharge Assessment Last Done: 11/13/22 17:13 Discharge Date/Time: 11/13/22 17:14
[2022-11-13 17:12] VITALS: BP 125/75; PULSE 70; RESP 16; O2SAT 100
== END 2022-11-13 17:14 | disposition home or self-care (01) ==
PROVIDERS: Emergency Provider Student in an Organized Health Care Education/Training Program; PCP Internal Medicine
DX: M47.892 Other spondylosis, cervical region (principal); M25.512 Pain in left shoulder; M54.2 Cervicalgia; Z87.891 Personal history of nicotine dependence; Z79.899 Other long term (current) drug therapy
CPT/HCPCS: 72040; 99283; 99284

== ENCOUNTER 2022-12-13 08:48 | Outpatient (AMB) | payer OTHER, SELFPAY ==
--- NOTE | 2022-12-13 08:54 | MHC.PC.OV ---
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 Accompanied by: Self / Same As Patient Allergies No Known Allergies Allergy (Verified 12/13/22 09:11) Medication List - Last Reconciled 12/13/22 by Isabella Kauffman MD No Known Home Meds Tobacco use date assessed: 12/13/22 Dental Screening Dental Screen Date: 12/13/22 Did you have a dental visit in the last 12 months?: Yes Did you have a dental problem in the last 6 months where you did not have access to dental care?: No Was dental information given to patient?: Patient has dentist HPI HPI Comments History of Present Illness Details This is a 47-year-old male that comes for his physical exam. Declines colonoscopy will willing to do Cologuard. Complains of diffuse joint pain and will be referred to rheumatology. Denies any fever or rash. [facility] Medical History Transaminitis Class 2 obesity with body mass index (BMI) of 38.0 to 38.9 in adult Polyarthralgia Presbyopia Family history of thyroid disease Family history of hypertension Asthma Right hip pain Surgical History No significant past surgical history Family History Mother No problems noted. Father Pulmonary fibrosis Social History Housing: Apartment Alcohol intake: never Patient Tobacco Use Status: Former Tobacco user Tobacco use type: Cigarette e-Cigarette/Vaping Use: Never Used Second Hand Smoke Exposure: No service: No Current occupational status: employed Current occupational exposures/hazards: No Cognitive needs: No Hearing needs: No Vision needs: No Questionnaire PHQ-9 Over the last 2 weeks, how often have you been bothered by any of the following problems? 1. Little interest or pleasure in doing things: not at all 2. Feeling down, depressed, or hopeless: not at all 3. Trouble falling or staying asleep, or sleeping too much: not at all 4. Feeling tired or having little energy: not at all 5. Poor appetite or overeating: not at all 6. Feeling bad about yourself - or that you are a failure or have let yourself or your family down: not at all 7. Trouble concentrating on things, such as reading the newspaper or watching television: not at all 8. Moving or speaking so slowly that other people could have noticed. Or the opposite - being so fidgety or restless that you have been moving around a lot more than usual: not at all 9. Thoughts that you would be better off or of hurting yourself in some way: not at all Total score: 0 Depression Screening Interpretation: Negative Depression Screening Done: Yes 91810 - PHQ-9 Billing: Yes Source: Developed by Drs. Walter Block, Jennifer Prieto, Arnoldo Young and colleagues, with an educational myla from [employer]. Thrive Questionnaire Date Thrive assessed: 12/13/22 I am a: Patient What is your living situation today?: I have a steady place to live Within the past 12 months, did the food you bought not last and you didn't have the money to get more?: Never true Within the past 12 months, did you worry whether your food would run out before you got money to buy more?: Never true Do you have trouble paying for medicines?: No Do you have trouble getting transportation to medical appointments?: No Do you have trouble paying your heating and electricity bill?: No Do you have trouble taking care of your child, family member or friend?: No Do you have trouble with day-to-day activities such as bathing, preparing meals, shopping, managing finances, etc.?: No Are you currently unemployed and looking for a job?: No Are you interested in more education?: No Please select the resources that you would like help with: None Currently or been in a relationship where the following occur: no concerns reported AUDIT C Alcohol Use Questionnaire (AUDIT-C) 1. How often do you have a drink containing alcohol?: Monthly or less 2. How many drinks containing alcohol do you have on a typical day when you are drinking?: 1 or 2 3. How often do you have six or more drinks on one occasion?: Never Total Score: 1 ADELFO-7 AMB Questionnaire ADELFO-7 Date ADELFO - 7 assessed: 12/13/22 Feeling nervous, anxious, or on edge: 0 = Not at all Not being able to stop or control worryin = Not at all Worrying too much about different things: 0 = Not at all Trouble relaxin = Not at all Being so restless that it is hard to sit still: 0 = Not at all Becoming easily annoyed or irritable: 0 = Not at all Feeling afraid as if something awful might happen: 0 = Not at all Total ADELFO-7 score (0-4 normal; 5-9 mild; 10-14 moderate; 15-21 severe): 0 Source: Developed by Drs. Walter Block, Jennifer Prieto, Arnoldo Young and colleagues, with an educational myla from [employer]. ADELFO-7 Assessment Billing ADELFO-7 Assessment Tool: ADELFO-7 Assessment 42474 Review of Systems Const All systems reviewed & are unremarkable except as noted in HPI and below Eyes Reports no additional complaints, Denies change in vision and Denies other visual disturbances Card Denies chest pain at rest, Denies chest pain with activity, Denies edema, Denies irregular heart rhythm, Denies claudication, Denies dyspnea, Denies dyspnea on exertion, Denies orthopnea, Denies paroxysmal nocturnal dyspnea and Denies slow heart rate Resp Denies cough, Denies dyspnea and Denies dyspnea on exertion GI Denies abdominal pain, Denies change in bowel habits, Denies excessive flatus, Denies nausea and Denies vomiting Denies urinary hesitancy, Denies urinary incontinence and Denies urinary urgency Musc Denies abnormal gait, Denies atrophy, Denies deformity, Reports arthralgias and Denies limited range of motion Skin/Breast Denies bleeding lesions, Denies changing lesions and Denies rash Neuro Denies abnormal gait and Denies lack of coordination Physical exam (Primary Care) Vital Signs: Last Vital Signs Pulse 66 12/13/22 08:56 BP 130/76 12/13/22 08:56 Pulse Ox 96 12/13/22 08:56 Oxygen Delivery Method Room Air 12/13/22 08:56 BMI result Body Mass Index 37.8 Tobacco/Smoking Status: Tobacco use Status Tobacco use date assessed 12/13/22 12/13/22 08:59 Patient Tobacco Use Status Former Tobacco user 12/13/22 08:59 Tobacco use type Cigarette 12/13/22 08:59 e-Cigarette/Vaping Use Never Used 12/13/22 08:59 PHQ-9: PHQ-9 Score PHQ-9: Total score 0 12/13/22 09:26 Depression Screening Interpretation: Negative Thrive Assessment: Date of Thrive Assessment Date Thrive assessed 12/13/22 12/13/22 08:59 Currently or been in a relationship where the following occur: no concerns reported Const Orientation/consciousness: patient oriented x3 HENMT Head: Yes normal to inspection, Yes normocephalic and Yes atraumatic Ears: external ears normal Eyes General: appearance normal, both eyes and all related structures Eyelids: Yes eyelids normal Conjunctivae: conjunctivae normal Neck Neck: Yes normal visual inspection and Yes supple Resp Effort & Inspection: normal respiratory effort Auscultation: clear to auscultation bilaterally Cardio Jugular venous distension: no JVD Rate: regular rate Rhythm: regular rhythm Heart sounds: S1 normal heart sound present and S2 normal heart sound present GI Inspection: Yes normal to inspection Palpation (GI): Soft to palpation and nontender Auscultation: normal bowel sounds Skin General skin exam: no rashes or lesions noted Neuro General: patient oriented x3 and no focal motor deficits Extrem General: Yes full ROM Psych Appearance: grossly normal Office Procedures Flu Questionnaire Does the patient have a severe egg allergy?: No Does the patient have severe life threatening allergies?: No Does the patient have a fever or illness today?: No Has the patient ever had Guillain-Novi Syndrome?: No Has the patient ever had any past reaction to a flu shot?: No Immunizations flu vacc [id number] 6mos up(PF) 60 mcg(15 mcgx4)/0.5 mL IM syringe Performing Provider: Isabella Kauffman MD Performing Location: [facility] Primary [facility] Administered by: RUBINA Gonsales on 12/13/22 09:27 Dose Route Admin Location Dispensed Lot Number Expiration Date NDC Trouble Locator Test Desk 0.5 mL IM Left Deltoid 0.5 mL [id number] 08/27/23 [id number] [employer] VIS Given Date VIS Provided VIS Publication Date 12/13/22 Single Vaccine 20 Eligibility Eligibility Date Funding Source Not [facility] Eligible 12/13/22 Private Assessment and Plan Assessment & Plan (1) Encounter for physical examination: Code(s): Z00.00 - Encounter for general adult medical examination without abnormal findings Plan: Repeat in a year. Orders: Orders Influenza [id number] Immunization Today Z23 - Encounter for immunization ECG 12 lead EKG Today R94.31 - Abnormal electrocardiogram [ECG] [EKG] Lipid Panel Today Z00.00 - Encounter for general adult medical examination without abnormal findings Comprehensive [place]. Panel Fast Today Z00.00 - Encounter for general adult medical examination without abnormal findings Referrals Cologuard Test Z12.11 - Encounter for screening for malignant neoplasm of colon, Z12.12 - Encounter for screening for malignant neoplasm of rectum Rheumatology Referral M25.50 - Pain in unspecified joint Ophthalmology Referral H53.8 - Other visual disturbances Coding Level of Care Code Est Pt Prev Care 40-64y(77797) Diagnoses Encounter for physical examination Z00.00 Additional Codes ADELFO-7 Assessment Billing - ADELFO-7 Assessment Tool: ADELFO-7 Assessment 93810 ([id number]) Time Spent (min) 31
[2022-12-13 08:56] VITALS: BP 130/76; PULSE 66; O2SAT 96; BMI 37.8
== END 2022-12-13 09:30 | disposition home or self-care (01) ==
PROVIDERS: Visit Provider Internal Medicine
DX: Z00.00 Encounter for general adult medical examination without abnormal findings (principal); Z23 Encounter for immunization; Z82.49 Family history of ischemic heart disease and other diseases of the circulatory system
CPT/HCPCS: 90471; 90686; 99396

== ENCOUNTER → 2023-05-08 10:44 | Outpatient (BNVA) | payer SELFPAY | PROVIDERS: PCP Internal Medicine; Visit Provider Internal Medicine | DX: Z02.79 Encounter for issue of other medical certificate (principal) ==

== ENCOUNTER 2023-05-16 01:55 | Emergency (ER) | payer SELFPAY ==
--- NOTE | ~2023-05-16 | XR_ITS ---
EXAMINATION: XR CHEST CLINICAL INFORMATION: Cough. COMPARISON: None available. TECHNIQUE: 2 views of the chest were obtained. FINDINGS: No significant abnormality is noted involving the heart, lungs, mediastinum, bony thorax or soft tissues. XR/XR chest 2V IMPRESSION: Unremarkable examination.
[2023-05-16 01:59] VITALS: BP 135/76; PULSE 76; RESP 17; TEMP 36.9; O2SAT 98; BMI 32.5
[2023-05-16 02:47] LABS: Influenza A PCR NEGATIVE (Negative); Influenza B PCR NEGATIVE (Negative); Resp Syncy Virus RNA Qual PCR NEGATIVE (Negative); SARS COV2 PCR INHOUSE NEGATIVE (Negative)
== END 2023-05-16 06:45 | disposition left against medical advice (07) ==
PROVIDERS: Emergency Provider Emergency Medicine; PCP Internal Medicine
DX: R05.9 Cough, unspecified (principal); R09.81 Nasal congestion; Z11.52 Encounter for screening for COVID-19; Z20.822 Contact with and (suspected) exposure to COVID-19
CPT/HCPCS: 0241U; 71046; 99281; 99283

== ENCOUNTER 2023-08-14 11:02 | Outpatient (AMB) | payer OTHER, SELFPAY ==
--- NOTE | 2023-08-14 11:04 | MHC.PC.OV ---
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 Accompanied by: Self / Same As Patient Allergies No Known Allergies Allergy (Verified 08/14/23 11:13) Medication List - Last Reconciled 08/14/23 by Isabella Kauffman MD No Known Home Meds Tobacco use date assessed: 08/14/23 Dental Screening Dental Screen Date: 08/14/23 Did you have a dental visit in the last 12 months?: No Did you have a dental problem in the last 6 months where you did not have access to dental care?: No Was dental information given to patient?: Patient has dentist HPI HPI Comments History of Present Illness Details This is a 48-year-old male with polyarthralgia and obesity that comes today complaining of insomnia. Sleep hygiene education was given. Still has diffuse joint pain and was referred to rheumatology but did not had insurance. I told him to call Rheumatology. He has obese with a BMI of 36.5 and was advised to do diet and exercise to reach BMI goal less than 30. No chest pain or shortness of breath. [facility] Medical History (Updated 08/14/23 @ 11:46 by Isabella Kauffman MD) Transaminitis Class 2 obesity with body mass index (BMI) of 38.0 to 38.9 in adult Polyarthralgia Presbyopia Family history of thyroid disease Family history of hypertension Asthma Right hip pain Surgical History No significant past surgical history Family History Mother No problems noted. Father Pulmonary fibrosis Social History Housing: Apartment Alcohol intake: never Patient Tobacco Use Status: Former Tobacco user Tobacco use type: Cigarette e-Cigarette/Vaping Use: Never Used Second Hand Smoke Exposure: No service: No Current occupational status: employed Current occupational exposures/hazards: No Cognitive needs: No Hearing needs: No Vision needs: No Questionnaire PHQ-9 Over the last 2 weeks, how often have you been bothered by any of the following problems? 1. Little interest or pleasure in doing things: not at all 2. Feeling down, depressed, or hopeless: not at all 3. Trouble falling or staying asleep, or sleeping too much: not at all 4. Feeling tired or having little energy: not at all 5. Poor appetite or overeating: not at all 6. Feeling bad about yourself - or that you are a failure or have let yourself or your family down: not at all 7. Trouble concentrating on things, such as reading the newspaper or watching television: not at all 8. Moving or speaking so slowly that other people could have noticed. Or the opposite - being so fidgety or restless that you have been moving around a lot more than usual: not at all 9. Thoughts that you would be better off or of hurting yourself in some way: not at all Total score: 0 Depression Screening Interpretation: Negative Depression Screening Done: Yes 52171 - PHQ-9 Billing: Yes Source: Developed by Drs. Walter Block, Jennifer Prieto, Arnoldo Young and colleagues, with an educational myla from [employer]. Thrive Questionnaire Date Thrive assessed: 08/14/23 I am a: Patient What is your living situation today?: I have a steady place to live Within the past 12 months, did the food you bought not last and you didn't have the money to get more?: Never true Within the past 12 months, did you worry whether your food would run out before you got money to buy more?: Never true Do you have trouble paying for medicines?: No Do you have trouble getting transportation to medical appointments?: No Do you have trouble paying your heating and electricity bill?: No Do you have trouble taking care of your child, family member or friend?: No Do you have trouble with day-to-day activities such as bathing, preparing meals, shopping, managing finances, etc.?: No Are you currently unemployed and looking for a job?: No Are you interested in more education?: No Please select the resources that you would like help with: None Currently or been in a relationship where the following occur: no concerns reported THRIVE Score: 0 AUDIT C Alcohol Use Questionnaire (AUDIT-C) 1. How often do you have a drink containing alcohol?: Monthly or less 2. How many drinks containing alcohol do you have on a typical day when you are drinking?: 1 or 2 3. How often do you have six or more drinks on one occasion?: Never Total Score: 1 ADELFO-7 AMB Questionnaire ADELFO-7 Date ADELFO - 7 assessed: 08/14/23 Feeling nervous, anxious, or on edge: 0 = Not at all Not being able to stop or control worryin = Not at all Worrying too much about different things: 0 = Not at all Trouble relaxin = Not at all Being so restless that it is hard to sit still: 0 = Not at all Becoming easily annoyed or irritable: 0 = Not at all Feeling afraid as if something awful might happen: 0 = Not at all Total ADELFO-7 score (0-4 normal; 5-9 mild; 10-14 moderate; 15-21 severe): 0 Source: Developed by Drs. Walter Block, Jennifer Prieto, Arnoldo Young and colleagues, with an educational myla from [employer]. ADELFO-7 Assessment Billing ADELFO-7 Assessment Tool: ADELFO-7 Assessment 07167 Review of Systems Const All systems reviewed & are unremarkable except as noted in HPI and below Card Denies chest pain at rest, Denies chest pain with activity, Denies edema, Denies irregular heart rhythm, Denies claudication, Denies dyspnea, Denies dyspnea on exertion, Denies orthopnea, Denies paroxysmal nocturnal dyspnea and Denies slow heart rate Resp Denies cough, Denies dyspnea and Denies dyspnea on exertion GI Denies abdominal pain, Denies change in bowel habits, Denies excessive flatus, Denies nausea and Denies vomiting Denies urinary hesitancy, Denies urinary incontinence and Denies urinary urgency Musc Denies abnormal gait, Denies atrophy, Denies deformity and Denies limited range of motion Skin/Breast Denies bleeding lesions, Denies changing lesions and Denies rash Neuro Denies abnormal gait and Denies lack of coordination Physical exam (Primary Care) Vital Signs: Last Vital Signs BP 110/78 08/14/23 11:06 BMI result Body Mass Index 36.5 BMI Assessment/Plan discussion: High BMI High, discussed plan: lifestyle, weight reduction, dietary and physical activity Tobacco/Smoking Status: Tobacco use Status Tobacco use date assessed 08/14/23 08/14/23 11:10 Patient Tobacco Use Status Former Tobacco user 08/14/23 11:10 Tobacco use type Cigarette 08/14/23 11:10 e-Cigarette/Vaping Use Never Used 08/14/23 11:10 PHQ-9: PHQ-9 Score PHQ-9: Total score 0 08/14/23 11:10 Depression Screening Interpretation: Negative Thrive Assessment: Date of Thrive Assessment Date Thrive assessed 08/14/23 08/14/23 11:10 Currently or been in a relationship where the following occur: no concerns reported Resp Effort & Inspection: normal respiratory effort Auscultation: clear to auscultation bilaterally Cardio Jugular venous distension: no JVD Rate: regular rate Rhythm: regular rhythm Heart sounds: S1 normal heart sound present and S2 normal heart sound present Extrem General: Yes full ROM Assessment and Plan Assessment & Plan (1) Class 2 obesity with body mass index (BMI) of 36.0 to 36.9 in adult: Code(s): E66.9 - Obesity, unspecified; Z68.36 - Body mass index [BMI] 36.0-36.9, adult Qualifiers: Obesity type: due to excess calories Serious obesity comorbidity presence: without serious comorbidity Qualified Code(s): E66.09 - Other obesity due to excess calories; Z68.36 - Body mass index [BMI] 36.0-36.9, adult Plan: Start diet and exercise. BMI goal is less than 30. (2) Insomnia: Code(s): G47.00 - Insomnia, unspecified Plan: Sleep hygiene education given. (3) Polyarthralgia: Code(s): M25.50 - Pain in unspecified joint Plan: Call Rheumatology for an appointment. Coding Level of Care Code Est Pt Level 3 (78101) Complex EM visit Add On G2211 Diagnoses Class 2 obesity due to excess calories without serious comorbidity with body mass index (BMI) of 36.0 to 36.9 in adult E66.09; Z68.36 Obesity type: due to excess calories Serious obesity comorbidity presence: without serious comorbidity Insomnia G47.00 Polyarthralgia M25.50 Additional Codes ADELFO-7 Assessment Billing - ADELFO-7 Assessment Tool: ADELFO-7 Assessment 09908 ([id number]) Time Spent (min) 18
[2023-08-14 11:06] VITALS: BP 110/78; BMI 36.5
== END 2023-08-14 11:21 | disposition home or self-care (01) ==
PROVIDERS: PCP Internal Medicine; Visit Provider Internal Medicine
DX: G47.00 Insomnia, unspecified (principal); E66.09 Other obesity due to excess calories; Z68.36 Body mass index [BMI] 36.0-36.9, adult; M25.50 Pain in unspecified joint
CPT/HCPCS: 99213; G2211

== ENCOUNTER 2023-08-19 09:00 | Outpatient (REF) | payer OTHER, SELFPAY ==
[2023-08-19 10:42] LABS: Alanine Aminotransferase 27 U/L (0-40); Albumin Level 4.2 g/dL (3.5-5.0); Alkaline Phosphatase 81 U/L (39-117); Anion Gap 12 (12-20); Aspartate Amino Transferase 18 U/L (5-37); Bilirubin Total 1.5 mg/dL (0.0-1.0); Blood Urea Nitrogen 20 mg/dL (9-16); Carbon Dioxide 25 mmol/L (22-29); Chloride 107 mmol/L (96-108); Cholesterol 185 mg/dL (<200); Estimated Glomerular Filt Rate > 60; Glucose Fasting 94 mg/dL (60-99); HDL Cholesterol 37 mg/dL (>40); LDL Cholesterol Calculated 127 mg/dL (<100); Potassium 3.8 mmol/L (3.3-5.1); Sodium 140 mmol/L (135-145); Total Protein 7.4 g/dL (6.5-8.0); Triglycerides 108 mg/dL (<150)
== END 2023-08-19 09:01 | disposition home or self-care (01) ==
LOC: HO.LAB 09:00
PROVIDERS: PCP Internal Medicine; Visit Provider Internal Medicine
DX: Z00.00 Encounter for general adult medical examination without abnormal findings (principal)
CPT/HCPCS: 36415; 80053; 80061

== ENCOUNTER 2023-08-26 09:28 | Outpatient (AMB) | payer OTHER, SELFPAY ==
[2023-08-26 09:49] VITALS: BP 130/80; PULSE 54; TEMP 36.4; O2SAT 97; BMI 37.0
--- NOTE | 2023-08-26 09:49 | AM.OFFWIN_ITS ---
Intake Vital Signs 08/26/23 09:49 Height 5 ft 6 in Weight 229 lb BMI 37.0 BP 130/80 Blood Pressure Location Lt brachial Position Sitting Pulse 54 Pulse Source Pulse Oximeter Temp 97.6 F Temp Source Temporal Artery Scan Pulse Oximetry (%) 97 Intake Visit Reasons: EP RT foot pain Intake Note: pt is here today for rt foot pain started 1 week ago Patient Tobacco Use Status: Former Tobacco user Allergies No Known Allergies Allergy (Verified 08/26/23 09:59) Do you need a note to return to daycare/school/sports/work: No HPI EP RT foot pain HPI Details Patient is a 48-year-old male comes to the walk-in clinic complaining of persistent right foot pain. He reports that he walks frequently with his job, on hard floors. He states that walking exacerbates his pain. His pain is the bottom of his foot, at distal aspect of the heel. He reports no acute trauma, no weakness numbness or tingling. No past history of issues with the foot. No trial of anti-inflammatory medication, or other conservative treatment thus far. [facility] Medical History Transaminitis Class 2 obesity with body mass index (BMI) of 38.0 to 38.9 in adult Polyarthralgia Presbyopia Family history of thyroid disease Family history of hypertension Asthma Right hip pain Surgical History No significant past surgical history Family History Mother No problems noted. Father Pulmonary fibrosis Social History Housing: Apartment Alcohol intake: never Patient Tobacco Use Status: Former Tobacco user Tobacco use type: Cigarette e-Cigarette/Vaping Use: Never Used Second Hand Smoke Exposure: No service: No Current occupational status: employed Current occupational exposures/hazards: No Cognitive needs: No Hearing needs: No Vision needs: No Review of Systems Const All systems reviewed & are unremarkable except as noted in HPI and below Physical Exam Vital Signs: Last Vital Signs Temp 97.6 F 08/26/23 09:49 Pulse 54 08/26/23 09:49 BP 130/80 08/26/23 09:49 Pulse Ox 97 08/26/23 09:49 BMI result Body Mass Index 37.0 Extrem Other: Patient's right foot with normal appearance. No trauma noted. Full range of motion and good strength to the ankle and foot. No pain with range of motion. Tenderness to palpation at the plantar aspect of distal he will, where he is palpably swollen. No other tenderness noted. He is flat-footed. Neurovascularly intact distally Results Reviewed Results Reviewed: Plain film x-ray done today shows no acute trauma on my wet read Assessment & Plan Assessment & Plan (1) Plantar fasciitis of right foot: Code(s): M72.2 - Plantar fascial fibromatosis Plan Patient with apparent plantar fasciitis. Plain film x-ray of the foot unremarkable. We discussed trialing inserts in his shoes, or he can buy a pair of shoes that gives him better support for work, which is likely the underlying contributing factor to this. He also can trial naproxen for 2 weeks, and we discussed proper stretching or rolling over the trigger point. Stretches from up-to-date were given. I counseled that almost all patients with plantar fasciitis resolve over time, but that it might take a few months to a year. If symptoms are not improving in a few weeks to a month, he can discuss with primary care considering a course of physical therapy, or he can see an orthopedist, who might put him into a walking boot for a trial. Orders: Orders XR foot RT min 3V 08/26/23 M79.671 - Pain in right foot Medications: New naproxen 500 mg PO BID PRN 28 tabs 0RF pain 14 days Coding Level of Care Code Est Pt Level 4 (72377) Diagnoses Plantar fasciitis of right foot M72.2
== END 2023-08-26 11:22 | disposition home or self-care (01) ==
PROVIDERS: PCP Internal Medicine; Visit Provider Physician Assistant Medical
DX: M72.2 Plantar fascial fibromatosis (principal)
CPT/HCPCS: 99051; 99214

== ENCOUNTER 2023-08-26 10:31 | Outpatient (REF) | payer OTHER, SELFPAY ==
--- NOTE | ~2023-08-26 | XR_ITS ---
EXAMINATION: XR FOOT, RIGHT CLINICAL INFORMATION: Pain COMPARISON: None available. TECHNIQUE: AP, lateral, and oblique views of the right foot. FINDINGS: No acute visible fracture or dislocation. Joint space alignment are maintained. Soft tissues are unremarkable. XR/XR foot RT min 3V IMPRESSION: No acute visible fracture or dislocation.
== END 2023-08-26 10:32 | disposition home or self-care (01) ==
LOC: HO.HMGCX 10:31
PROVIDERS: Visit Provider Physician Assistant Medical
DX: M79.671 Pain in right foot (principal)
CPT/HCPCS: 73630

== ENCOUNTER 2023-11-23 10:46 | Outpatient (AMB) | payer OTHER, SELFPAY ==
--- NOTE | 2023-11-23 10:49 | MHC.OFFVIS ---
Vital Signs 11/23/23 10:59 Height 5 ft 6 in Weight 217 lb 6.012 oz BMI 35.1 BP 122/64 Blood Pressure Location Rt brachial Position Sitting Pulse 52 Pulse Source Pulse Oximeter Pulse Oximetry (%) 97 Oxygen Delivery Method Room Air Intake Visit Reasons: Joint Pain Intake Note: Patient presents for joint pain. Feel pain on right shoulder and both hips for 3 months now. Ongoing left knee pain for 3 years. Left foot pain for 4 months. Ibuprofen for pain but it works short term. Senior Oracle Database Developer Required: Yes Senior Oracle Database Developer Language: Rehabilitation Therapy Aide Services: Senior Oracle Database Developer Present Senior Oracle Database Developer Name: Nasra [id number] Information Interpreted: non-clinical & clinical Allergies No Known Allergies Allergy (Verified 11/23/23 10:57) Medication List - Last Reconciled 11/23/23 by Denny Madera MD acetaminophen (Pain Relief Extra Strength (acetaminophen)) 500 mg PO Q6H PRN chlorhexidine gluconate 0.12% PO naproxen 500 mg PO BID PRN 14 days HPI Comments Details: This is a 48-year-old male who presents for evaluation of multiple joint pain. He has pain in his right shoulder, and left knee and low back that intermittently radiates down his buttock and thighs. He takes Tylenol or ibuprofen every once in awhile and it does not provide long-lasting relief. He works as a tool room machinist. He is unaware of any family history of an autoimmune rheumatic disease [facility] Medical History Transaminitis Class 2 obesity with body mass index (BMI) of 38.0 to 38.9 in adult Polyarthralgia Presbyopia Family history of thyroid disease Family history of hypertension Asthma Right hip pain Surgical History No significant past surgical history Family History Mother No problems noted. Father Pulmonary fibrosis Social History Housing: Apartment Alcohol intake: current Alcohol intake frequency: holidays/special occasions only Alcohol type: wine Comment: Rare Patient Tobacco Use Status: Former Tobacco user Tobacco use type: Cigarette e-Cigarette/Vaping Use: Never Used Second Hand Smoke Exposure: No service: No Current occupational status: employed Current occupational exposures/hazards: No Cognitive needs: No Hearing needs: No Vision needs: No Review of Systems Musc Reports back pain, Reports arthralgias and Reports stiffness Physical Exam Vital Signs: Last Vital Signs Pulse 52 11/23/23 10:59 BP 122/64 11/23/23 10:59 Pulse Ox 97 11/23/23 10:59 Oxygen Delivery Method Room Air 11/23/23 10:59 BMI result Body Mass Index 35.1 Const General: cooperative, healthy appearing and comfortable Nutritional Appearance: obese Orientation/consciousness: patient oriented x3 Limitations: no limitations HEENT Head: Yes normocephalic and Yes atraumatic Mouth: moist mucous membranes Resp Effort & Inspection: normal respiratory effort and able to speak in complete sentences Skin General skin exam: no rashes or lesions noted Neuro General: patient oriented x3 Extrem Other: Positive empty can test on the right Positive Speed's test on the right Nailfold capillaroscopy No active synovitis No knee pain with flexion-extension bilaterally Negative straight leg raise test bilaterally Assessment & Plan Assessment & Plan (1) Right rotator cuff tendinitis: Code(s): M75.81 - Other shoulder lesions, right shoulder Category: Medical Plan: Referred to PT Return as needed, can consider an injection for subacromial bursitis (2) Lumbar degenerative disc disease: Code(s): M51.36 - Other intervertebral disc degeneration, lumbar region Category: Medical Plan: Referred to PT Plan I spent 30 minutes reviewing patient's chart, evaluating patient, placing orders, counseling patient and documenting in the chart Orders: Orders PT Evaluation and Treatment Today M51.36 - Other intervertebral disc degeneration, lumbar region, M75.81 - Other shoulder lesions, right shoulder Coding Level of Care Code New Pt Level 3 (36145) Diagnoses Right rotator cuff tendinitis M75.81 Lumbar degenerative disc disease M51.36
[2023-11-23 10:59] VITALS: BP 122/64; PULSE 52; O2SAT 97; BMI 35.1
== END 2023-11-23 11:19 | disposition home or self-care (01) ==
PROVIDERS: PCP Internal Medicine; Visit Provider Student in an Organized Health Care Education/Training Program
DX: M75.81 Other shoulder lesions, right shoulder (principal); M51.36 Other intervertebral disc degeneration, lumbar region
CPT/HCPCS: 99203

== ENCOUNTER → 2023-11-23 10:46 | Outpatient (BNVA) | payer OTHER, SELFPAY | PROVIDERS: PCP Internal Medicine; Visit Provider Student in an Organized Health Care Education/Training Program ==

== ENCOUNTER 2023-11-25 11:58 | Outpatient (AMB) | payer OTHER, SELFPAY ==
--- NOTE | 2023-11-25 13:55 | MHC.OFFWIV ---
Intake Vital Signs 11/25/23 13:56 Height 5 ft 6 in Weight 217 lb BMI 35.0 BP 100/60 Blood Pressure Location Rt brachial Position Sitting Pulse 50 Pulse Source Pulse Oximeter Temp 98.0 F Temp Source Oral Pulse Oximetry (%) 97 Oxygen Delivery Method Room Air Intake Visit Reasons: EP Rash on LT arm Intake Note: Pt is here today c/o Lt arm rash and itch Patient Tobacco Use Status: Former Tobacco user Allergies No Known Allergies Allergy (Verified 12/18/23 09:52) HPI EP Rash on LT arm HPI Details Patient is a 40-year-old male with a history of similar rash about a year ago, who comes to the walk-in clinic complaining of new onset itchy red area to the front of his elbow area a few days ago. No known contact with allergens or chemicals or other obvious triggers or exposures. No relief with caladryl lotion, and bumps formed in the center of the area, blistered and popped. No fever or chills, weakness or dizziness, headache, myalgias malaise, nausea vomiting or diarrhea, or other significant associated symptoms of localized or systemic infection. [facility] Medical History Transaminitis Class 2 obesity with body mass index (BMI) of 38.0 to 38.9 in adult Polyarthralgia Presbyopia Family history of thyroid disease Family history of hypertension Asthma Right hip pain Surgical History No significant past surgical history Family History Mother No problems noted. Father Pulmonary fibrosis Social History Housing: Apartment Alcohol intake: current Alcohol intake frequency: holidays/special occasions only Alcohol type: wine Comment: Rare Patient Tobacco Use Status: Former Tobacco user Tobacco use type: Cigarette e-Cigarette/Vaping Use: Never Used Second Hand Smoke Exposure: No service: No Current occupational status: employed Current occupational exposures/hazards: No Cognitive needs: No Hearing needs: No Vision needs: No Review of Systems Const All systems reviewed & are unremarkable except as noted in HPI and below Physical Exam Vital Signs: Last Vital Signs Temp 98.0 F 11/25/23 13:56 Pulse 50 11/25/23 13:56 BP 100/60 11/25/23 13:56 Pulse Ox 97 11/25/23 13:56 Oxygen Delivery Method Room Air 11/25/23 13:56 BMI result Body Mass Index 35.0 Skin Other: Mildly pruritic erythematous maculopapular rash to the left antecubital crease. No obvious vesicles. No edema, warmth, fluctuance or induration or other cellulitic features. Assessment & Plan Assessment & Plan (1) Dermatitis: Code(s): L30.9 - Dermatitis, unspecified Plan Patient is a 48-year-old male with apparent localized dermatitis to the left AC area. He does not have a history of atopic dermatitis, but this is now the 2nd flare up, with the last being a year ago, and with no known underlying trigger. That flare-up was apparently worse, as it reportedly covered the majority of his anterior chest wall, and it did clear with a course of oral prednisone. As this seems localized to the left antecubital fossa, this might be more of an contact dermatitis condition, and it is a smaller area that should be responsive to topical steroid. Therefore I wrote him for topical triamcinolone to use for the next week and a half to 2 weeks. We discussed that he should follow up if symptoms persist until the next week, and he might need to get allergy tested if symptoms recur. He knows to follow up sooner as needed with worrisome symptoms. Medications: New triamcinolone acetonide 0.1% 1 appl topical BID 15 grams 0RF 10 days Coding Level of Care Code Est Pt Level 4 (61428) Diagnoses Dermatitis L30.9
[2023-11-25 13:56] VITALS: BP 100/60; PULSE 50; TEMP 36.7; O2SAT 97; BMI 35.0
== END 2023-11-25 15:00 | disposition home or self-care (01) ==
PROVIDERS: PCP Internal Medicine; Visit Provider Physician Assistant Medical
DX: L30.9 Dermatitis, unspecified (principal)

== ENCOUNTER → 2023-11-25 11:58 | Outpatient (BNVA) | payer OTHER, SELFPAY | PROVIDERS: PCP Internal Medicine; Visit Provider Physician Assistant Medical ==

== ENCOUNTER 2023-12-18 09:19 | Outpatient (AMB) | payer OTHER, SELFPAY ==
--- NOTE | 2023-12-18 09:28 | MHC.PC.OV ---
Vital Signs 12/18/23 09:30 Height 5 ft 6 in Weight 219 lb BMI 35.3 BP 120/76 Blood Pressure Location Lt brachial Position Sitting Intake Visit Reasons: annual exam Waitstaff Captain Required: No Accompanied by: Self / Same As Patient Allergies No Known Allergies Allergy (Verified 12/18/23 09:52) Medication List - Last Reconciled 12/18/23 by Isabella Kauffman MD acetaminophen (Pain Relief Extra Strength (acetaminophen)) 500 mg PO Q6H PRN naproxen 500 mg PO BID PRN 14 days Tobacco use date assessed: 08/14/23 Dental Screening Dental Screen Date: 08/14/23 HPI HPI Comments History of Present Illness Details This is a 48-year-old male that comes for his physical exam. Cologuard done 2022 was negative. No chest pain or shortness on breath. He is obese with a BMI of 35.3 and was advised to do diet and exercise to reach BMI goal less than 30. Complains of right ear itchiness that started few weeks ago. [facility] Medical History Transaminitis Class 2 obesity with body mass index (BMI) of 38.0 to 38.9 in adult Polyarthralgia Presbyopia Family history of thyroid disease Family history of hypertension Asthma Right hip pain Surgical History No significant past surgical history Family History Mother No problems noted. Father Pulmonary fibrosis Social History Housing: Apartment Alcohol intake: current Alcohol intake frequency: holidays/special occasions only Alcohol type: wine Comment: Rare Patient Tobacco Use Status: Former Tobacco user Tobacco use type: Cigarette e-Cigarette/Vaping Use: Never Used Second Hand Smoke Exposure: No service: No Current occupational status: employed Current occupational exposures/hazards: No Cognitive needs: No Hearing needs: No Vision needs: No Questionnaire PHQ-9 Over the last 2 weeks, how often have you been bothered by any of the following problems? 1. Little interest or pleasure in doing things: not at all 2. Feeling down, depressed, or hopeless: not at all 3. Trouble falling or staying asleep, or sleeping too much: not at all 4. Feeling tired or having little energy: several days 5. Poor appetite or overeating: not at all 6. Feeling bad about yourself - or that you are a failure or have let yourself or your family down: not at all 7. Trouble concentrating on things, such as reading the newspaper or watching television: not at all 8. Moving or speaking so slowly that other people could have noticed. Or the opposite - being so fidgety or restless that you have been moving around a lot more than usual: not at all 9. Thoughts that you would be better off or of hurting yourself in some way: not at all Total score: 1 Depression Screening Interpretation: Negative Depression Screening Done: Yes 32292 - PHQ-9 Billing: Yes Source: Developed by Drs. Walter Block, Jennifer Prieto, Arnoldo Young and colleagues, with an educational myla from [employer]. Thrive Questionnaire Date Thrive assessed: 12/18/23 I am a: Patient What is your living situation today?: I have a steady place to live Within the past 12 months, did the food you bought not last and you didn't have the money to get more?: Often true Within the past 12 months, did you worry whether your food would run out before you got money to buy more?: Often true Do you have trouble paying for medicines?: No Do you have trouble getting transportation to medical appointments?: No Do you have trouble paying your heating and electricity bill?: No Do you have trouble taking care of your child, family member or friend?: No Do you have trouble with day-to-day activities such as bathing, preparing meals, shopping, managing finances, etc.?: No Are you currently unemployed and looking for a job?: No Are you interested in more education?: No Please select the resources that you would like help with: None Currently or been in a relationship where the following occur: No concerns reported THRIVE Score: 2 AUDIT C Alcohol Use Questionnaire (AUDIT-C) 1. How often do you have a drink containing alcohol?: Never Total Score: 0 Score Reviewed/Action Taken: No ADELFO-7 AMB Questionnaire ADELFO-7 Date ADELFO - 7 assessed: 12/18/23 Feeling nervous, anxious, or on edge: 0 = Not at all Not being able to stop or control worryin = Not at all Worrying too much about different things: 0 = Not at all Trouble relaxin = Not at all Being so restless that it is hard to sit still: 0 = Not at all Becoming easily annoyed or irritable: 0 = Not at all Feeling afraid as if something awful might happen: 0 = Not at all Total ADELFO-7 score (0-4 normal; 5-9 mild; 10-14 moderate; 15-21 severe): 0 Source: Developed by Drs. Walter Block, Jennifer Prieto, Arnoldo Young and colleagues, with an educational myla from [employer]. ADELFO-7 Assessment Billing ADELFO-7 Assessment Tool: ADELFO-7 Assessment 30427 Review of Systems Const All systems reviewed & are unremarkable except as noted in HPI and below Card Denies chest pain at rest, Denies chest pain with activity, Denies edema, Denies irregular heart rhythm, Denies claudication, Denies dyspnea, Denies dyspnea on exertion, Denies orthopnea, Denies paroxysmal nocturnal dyspnea and Denies slow heart rate Resp Denies cough, Denies dyspnea and Denies dyspnea on exertion GI Denies abdominal pain, Denies change in bowel habits, Denies excessive flatus, Denies nausea and Denies vomiting Denies urinary hesitancy, Denies urinary incontinence and Denies urinary urgency Musc Denies atrophy, Denies deformity and Denies limited range of motion Skin/Breast Denies bleeding lesions, Denies changing lesions and Denies rash Physical exam (Primary Care) Vital Signs: Last Vital Signs BP 120/76 12/18/23 09:30 BMI result Body Mass Index 35.3 BMI Assessment/Plan discussion: High BMI High, discussed plan: lifestyle, weight reduction, dietary and physical activity Tobacco/Smoking Status: Tobacco use Status Tobacco use date assessed 08/14/23 12/18/23 09:29 Patient Tobacco Use Status Former Tobacco user 12/18/23 09:29 Tobacco use type Cigarette 12/18/23 09:29 e-Cigarette/Vaping Use Never Used 12/18/23 09:29 PHQ-9: PHQ-9 Score PHQ-9: Total score 1 12/18/23 10:21 Depression Screening Interpretation: Negative Thrive Assessment: Date of Thrive Assessment Date Thrive assessed 12/18/23 12/18/23 09:36 Currently or been in a relationship where the following occur: No concerns reported [facility] Head: Yes normal to inspection, Yes normocephalic and Yes atraumatic Ears: external ears normal Eyes General: appearance normal, both eyes and all related structures Eyelids: Yes eyelids normal Conjunctivae: conjunctivae normal Neck Neck: Yes normal visual inspection and Yes supple Resp Effort & Inspection: normal respiratory effort Auscultation: clear to auscultation bilaterally Cardio Jugular venous distension: no JVD Rate: regular rate Rhythm: regular rhythm Heart sounds: S1 normal heart sound present and S2 normal heart sound present GI Inspection: Yes normal to inspection Palpation (GI): Soft to palpation and nontender Auscultation: normal bowel sounds Skin General skin exam: no rashes or lesions noted Neuro General: no focal motor deficits Extrem General: Yes full ROM Psych Appearance: grossly normal Office Procedures Flu Questionnaire Does the patient have a severe egg allergy?: No Does the patient have severe life threatening allergies?: No Does the patient have a fever or illness today?: No Has the patient ever had Guillain-Weesatche Syndrome?: No Has the patient ever had any past reaction to a flu shot?: No Immunizations Fluarix Triv [id number] (PF) 45 mcg (15 mcg x 3)/0.5 mL IM syringe Performing Provider: Isabella Kauffman MD Performing Location: [facility] [place] [facility] Administered by: RUBINA Gonsales on 12/18/23 10:06 Dose Route Admin Location Dispensed Lot Number Expiration Date [facility][NOTE 3] Event Marketing Assistant 0.5 mL IM Left Deltoid 0.5 mL [id number] 08/26/24 30140-833-55 [employer] VIS Given Date VIS Provided VIS Publication Date 12/18/23 Single Vaccine 20 Eligibility Eligibility Date Funding Source Not [facility] Eligible 12/18/23 Private Coding Level of Care Code Est Pt Level 3 (17260) Est Pt Prev Care 40-64y(02635) Diagnoses Physical exam Z00.00 Ear itching L29.9 Additional Codes ADELFO-7 Assessment Billing - ADELFO-7 Assessment Tool: ADELFO-7 Assessment 81982 ([id number]) Time Spent (min) 33 Assessment & Plan Assessment & Plan (1) Physical exam: Code(s): Z00.00 - Encounter for general adult medical examination without abnormal findings Category: Medical Plan: Repeat in a year. (2) Ear itching: Code(s): L29.9 - Pruritus, unspecified Category: Medical Plan: Start Dermotic. Orders: Orders Influenza [id number] Immunization Today Z23 - Encounter for immunization Medications: New loratadine (Allergy Relief (loratadine)) 10 mg PO DAILY PRN 90 tabs 1RF allergic symptoms 90 days fluocinolone acetonide oil 0.01% (DermOtic Oil) 5 drps otic (ears) BID 20 mL 0RF 7 days L29.9 - Pruritus, unspecified
[2023-12-18 09:30] VITALS: BP 120/76; BMI 35.3
== END 2023-12-18 10:06 | disposition home or self-care (01) ==
PROVIDERS: PCP Internal Medicine; Visit Provider Internal Medicine
DX: Z00.00 Encounter for general adult medical examination without abnormal findings (principal); L29.9 Pruritus, unspecified

== ENCOUNTER → 2023-12-18 09:19 | Outpatient (BNVA) | payer OTHER, SELFPAY | PROVIDERS: PCP Internal Medicine; Visit Provider Internal Medicine | DX: Z00.01 Encounter for general adult medical examination with abnormal findings (principal); L29.9 Pruritus, unspecified; Z23 Encounter for immunization | CPT/HCPCS: 90471; 90656; 96127 ==

== ENCOUNTER 2024-01-15 09:55 | Outpatient (RCR) | payer OTHER, SELFPAY | END 2024-02-02 10:35 | disposition home or self-care (01) | LOC: HO.PT 09:55 | PROVIDERS: PCP Internal Medicine; Visit Provider Student in an Organized Health Care Education/Training Program | DX: M75.81 Other shoulder lesions, right shoulder (principal); M51.369 Other intervertebral disc degeneration, lumbar region without mention of lumbar back pain or lower extremity pain | CPT/HCPCS: 97110; 97140; 97161 ==

== ENCOUNTER 2024-03-04 11:41 | Outpatient (REF) | payer OTHER, SELFPAY ==
[2024-03-04 12:35] LABS: Influenza A PCR NEGATIVE (Negative); Influenza B PCR NEGATIVE (Negative); Resp Syncy Virus RNA Qual PCR NEGATIVE (Negative); SARS COV2 PCR INHOUSE NEGATIVE (Negative)
== END 2024-03-04 11:42 | disposition home or self-care (01) ==
LOC: HO.LAB 11:41
PROVIDERS: PCP Internal Medicine; Visit Provider Internal Medicine
DX: R09.89 Other specified symptoms and signs involving the circulatory and respiratory systems (principal)
CPT/HCPCS: 0241U

== ENCOUNTER 2024-04-15 12:29 | Outpatient (AMB) | payer OTHER, SELFPAY ==
--- OUTSIDE RECORDS SUMMARY | 2024-04-15 12:32 | XMS_ITS | Encounter Summary ---
Author Organization [employer] Address [address] [place] [address] [address] [place] [address] Care Team Providers Care Manager Credit Collections Name Role Phone Unavailable Primary Care Provider Unavailabl e Reason for Visit * Reason Comments Med Refill Encounter Details Date Type Department Care Team ([facility] st Contact Info) Description 11/17/2023 Refill [facility] [address] [place] [address] Chester Zuniga DMD [address] [place] [address] Social History Tobacco Use Types Packs/Day Years Used Date Smoking Tobacco: Never Assessed Sex and Gender Information Value Date Recorded Sex Assigned at Male 04/04/2023 8:23 AM EST Legal Sex Male 8:22 AM EST Gender Identity Male 04/04/2023 8:23 AM EST Sexual Orientation Straight 04/04/2023 8: 23 AM EST documented as of this encounter Miscellaneous Notes * Telephone Encounter - Chester Zuniga DMD - 11/20/2023 8:33 AM EDT Approving, but needs appt for additional refills. documented in this encounter Plan of Treatment Not on file documented as of this encounter Visit Diagnoses Not on filedocumented in this encounter
--- OUTSIDE RECORDS SUMMARY | 2024-04-15 12:32 | XMS_ITS | Encounter Summary ---
Author Organization [employer] Address [address] [place] [address] [address] [place] [address] Care Team Providers Care Lock Setter Name Role Phone Unavailable Primary Care Provider Unavailabl e Reason for Visit * Reason Comments Med Refill Encounter Details Date Type Department Care Team (Late st Contact Info) Description 05/24/[address] [facility] [address] [place] [address] Chester Zuniga, DMD [address] [place] [address] Social History Tobacco Use Types Packs/Day Years Used Date Smoking Tobacco: Never Assessed Sex and Gender Information Value Date Recorded Sex Assigned at Male 04/04/2023 8:23 AM EST Legal Sex Male 8:22 AM EST Gender Identity Male 04/04/2023 8:23 AM EST Sexual Orientation Straight 04/04/2023 8: 23 AM EST documented as of this encounter Miscellaneous Notes * Telephone Encounter - Dominique Ronquillo DDS - 05/26/2023 8:13 AM EDT Approving, but needs appt for additional refills. documented in this encounter Plan of Treatment Not on file documented as of this encounter Visit Diagnoses Not on filedocumented in this encounter
--- OUTSIDE RECORDS SUMMARY | 2024-04-15 12:32 | XMS_ITS | Encounter Summary ---
Author Organization [employer] Address [address] [place] [address] [address] [place] [address] Care Team Providers Care Leisure Studies Professor Name Role Phone Unavailable Primary Care Provider Unavailabl e Reason for Visit * Reason Comments Med Refill Encounter Details Date Type Department Care Team (Late st Contact Info) Description 07/30/2023 Refill [facility] [address] [place] [address] Dominique Ronquillo DDS [address] [place] [address] Social History Tobacco Use Types Packs/Day Years [...] Telephone Encounter - Chester Zuniga DMD - 07/31/2023 8:00 AM EDT Approving, but needs appt for additional refills. documented in this encounter Plan of Treatment Not on file documented as of this encounter Visit Diagnoses Not on filedocumented in this encounter
--- OUTSIDE RECORDS SUMMARY | 2024-04-15 12:32 | XMS_ITS | Clinical Summary ---
Author Organization [employer] Address [address] [place] [address] [address] [place] [address] Care Team Providers Care Litigation Claim Representative Name Role Phone Unavailable Primary Care Provider Unavailabl e Allergies No known active allergies Medications ibuprofen 800 MG tablet TAKE 1 TAB IF NEEDED IN THE MORNING, AT NOON AND BEDTIME FOR MILD/MODERAT E PAIN FOR UP TO 5 DAYS 15 tablet 05/26/2023 Active amoxicillin (Amoxil) 500 MG capsule TAKE 1 CAPSULE (500 MG) BY MOUTH EVERY 8 HOURS FOR 7 DAYS 21 capsule 05/26/2023 Active chlorhexidine (Peridex) 0.12 % solution USE 15 ML IN MOUTH AND SPIT IF NEEDED AM AT NOON AND BEDTIME FOR UP TO 5 DAYS DO NOT SWALLOW 473 mL 11/20/2023 Active Social History Tobacco Use Types Packs/Day Years Used Date Smoking Tobacco: Never Assessed Sex and Gender Information Value Date Recorded Sex Assigned at Male 04/04/2023 8:23 AM EST Legal Sex Male 8:22 AM EST Gender Identity Male 04/04/2023 8:23 AM EST Sexual Orientation Straight 04/04/2023 8: 23 AM EST Plan of Treatment Health Maintenance Due Date Last Done Comments CT Colonography 1975 Colonoscopy 1975 Colorectal Cancer Screening 1975 Dental Oral Exam 1975 Dental Prophylaxis 1975 Dental X-Ray: Bitewings 1975 Depression Screening 1975 FIT DNA/Cologuard 1975 FIT 1975 FOBT 1975 HIV Screening 1975 Lipid Panel 1975 SDOH Screening 1975 Sigmoidoscopy 1975 Alcohol/Substance Use Screening 1987 Tobacco Screening 1987 Family Planning (PISQ) 07/07/1990 Hepatitis C Screening 07/07/1993 Hepatitis B Vaccines (1 of 3 - 19+ 3-dose series) 07/07/1994 COVID-19 Vaccine (3 - 2023- season) 2023 07/21/2020, 06/23/2020 Influenza Vaccine (#1) 2023 , 12/08/2021, 12/08/2020, Additional history exists Zoster Vaccines (1 of 2) 07/07/2025 Dental X-Ray: Full Mouth 04/05/2026 04/04/2023 DTaP/Tdap/Td Vaccines (3 - Td or Tdap) 01/01/2031 01/01/2021, 05/13/2019 RSV Patients and Patients Aged 60 years or older (1 - 1-dose 75+ series) 07/07/2050 HIB Vaccines Aged Out No longer eligi ble based on patient's age to complete this topic HPV Vaccines Aged Out No longer eligi ble based on patient's age to complete this topic Hepatitis A Vaccines Aged Out No long er eligible based on patient's age to complete this topic IPV Vaccines Aged Out No longer eligi ble based on patient's age to complete this topic Meningococcal Vaccine Aged Out No lyndsay charisma eligible based on patient's age to complete this topic Pneumococcal Vaccine: Pediatrics (0 to 5 Years) and At-Risk Patients (6 to 49) Years) Aged Out No longer eligible based on patient's age to complete this topic RSV under 20 months Aged Out No longe r eligible based on patient's age to complete this topic Rotavirus Vaccines Aged Out No longer eligible based on patient's age to complete this topic Procedures Procedure Name Priority Date/Time Associated Diagnosis Comments PANORAMIC RADIOGRAPHIC IMAGE Routine 04/04/2023 12:30 PM EST from Last 3 Months or Most Recently Relevant to Health Maintenance
[2024-04-15 12:35] VITALS: BP 128/72; PULSE 60; O2SAT 98
--- NOTE | 2024-04-15 12:35 | AM.OFFWIN_ITS ---
Intake Vital Signs 04/15/24 12:35 Weight 214 lb BP 128/72 Blood Pressure Location Rt brachial Position Sitting Pulse 60 Pulse Source Pulse Oximeter Pulse Oximetry (%) 98 Oxygen Delivery Method Room Air Intake Visit Reasons: EP Pain in lower back Intake Note: Patient here for lower back pain after shoveling over the weekend and then this morning he slipped and it became more painful Patient Tobacco Use Status: Former Tobacco user Allergies No Known Allergies Allergy (Verified 04/15/24 12:37) Do you need a note to return to daycare/school/sports/work: Yes HPI HPI Comments History of Present Illness Details History of Present Illness - The patient is a 48-year-old male pres enting with back pain following shoveling over the last 2 days. - The incident occurred while the patien t was lifting heavy weights due to snow cleanup. He also slipped on the ice and fell on his bottom. - Symptoms include soreness in the back without spinal pain. - The patient reports ineffective relief from Tylenol. - No urinary or fecal incontinence obser esther. - Naproxen used previously for similar i ssues, currently depleted. - No renal complications noted. Physical Exam General: Cooperative, healthy appearing, comfortable, no acute distress and well developed Orientation: Patient oriented x3 Limitations: No limitations Head: Normal to inspection Ears: Hearing grossly normal bilaterally Nose: Normal external nose present Face and sinus: Normal facial exam Eyes: Appearance normal, both eyes and all related structures Neck: Normal visual inspection and Yes full ROM Respiratory: Normal respiratory effort and able to speak in complete sentences Skin: No rashes or lesions noted Neuro: Patient oriented x3 Extremities: Normal to inspection [facility] Medical History Transaminitis Class 2 obesity with body mass index (BMI) of 38.0 to 38.9 in adult Polyarthralgia Presbyopia Family history of thyroid disease Family history of hypertension Asthma Right hip pain Surgical History No significant past surgical history Family History Mother No problems noted. Father Pulmonary fibrosis Social History Housing: Apartment Alcohol intake: current Alcohol intake frequency: holidays/special occasions only Alcohol type: wine Comment: Rare Patient Tobacco Use Status: Former Tobacco user Tobacco use type: Cigarette e-Cigarette/Vaping Use: Never Used Second Hand Smoke Exposure: No service: No Current occupational status: employed Current occupational exposures/hazards: No Cognitive needs: No Hearing needs: No Vision needs: No Review of Systems Const All systems reviewed & are unremarkable except as noted in HPI and below Physical Exam Vital Signs: Last Vital Signs Pulse 60 04/15/24 12:35 BP 128/72 04/15/24 12:35 Pulse Ox 98 04/15/24 12:35 Oxygen Delivery Method Room Air 04/15/24 12:35 Back/Spine/Pelvis Cervical Spine: cervical ROM normal and No Cervical spine tenderness Thoracic/Lumbar Spine: paraspinal muscle tenderness on the right greater than left, thoraco-lumbar ROM limited with lateral flexion to the left, No thoracic spinal tenderness and No lumbar spinal tenderness Assessment & Plan Assessment & Plan (1) Low back strain: Code(s): S39.012A - Strain of muscle, fascia and tendon of lower back, initial encounter Plan: Plan The patient appears to have suffered a muscle strain following a fall incurred during heavy lifting. I prescribed Naproxen 500 mg every 12 hours as an NSAID stronger than [id number] varieties, and Cyclobenzaprine for nighttime use to address muscle spasms. Ice application for reducing inflammation was advised. The patient should follow up with Dr. Castellanos if symptoms do not chaya or worsen. With a clear history of no kidney issues, the outlined treatment plan poses minimal risk. Patient was informed and verbally consented to the use of an ambient scribe for clinic note documentation during this visit. Medications: New naproxen 500 mg PO Q12H PRN 20 tabs 0RF pain cyclobenzaprine 5 mg PO Q8H PRN 10 tabs 0RF Muscle Spasm Coding Level of Care Code Est Pt Level 3 (72564) Diagnoses Low back strain S39.012A
== END 2024-04-15 13:01 | disposition home or self-care (01) ==
PROVIDERS: PCP Internal Medicine; Visit Provider Physician Assistant
DX: S39.012A Strain of muscle, fascia and tendon of lower back, initial encounter (principal)

== ENCOUNTER → 2024-05-03 10:11 | Outpatient (BNVA) | payer SELFPAY | PROVIDERS: PCP Internal Medicine; Visit Provider Internal Medicine | DX: Z02.79 Encounter for issue of other medical certificate (principal) ==

== ENCOUNTER 2024-05-07 08:21 | Outpatient (REF) | payer OTHER, SELFPAY ==
[2024-05-07 17:23] LABS: Appearance Urine Turbid; Color Urine Yellow; Glucose Urine UA Negative (Negative); Leukocyte Esterase Urine Negative (Negative); Nitrite Urine Negative (Negative); PH 5.5 (5.0-9.0); Specific Gravity - Urine >= 1.030 (1.005-1.025); Urine Blood Negative (Negative); Urine Ketones Negative (Negative); Urine Protein Trace mg/dL (Neg-Trace)
--- OUTSIDE RECORDS SUMMARY | 2024-05-07 19:31 | XMS_ITS | Encounter Summary ---
Author Organization [employer] Address [address] [place] [address] 7t [place] [address] Care Team Providers Care [place] Pediatric Allergist Name Role Phone Unavailable Primary Care Provider Unavailabl e Reason for Visit * Reason Comments Med Refill Encounter Details Date Type Department Care Team (Late st Contact Info) Description 07/30/2023 Refill [facility] ADULT DENTAL [address] [place] [address] Dominique Ronquillo DDS [address] [place] [address] Social History Tobacco Use Types Packs/Day Years [...]
--- OUTSIDE RECORDS SUMMARY | 2024-05-07 19:31 | XMS_ITS | Encounter Summary ---
Author Organization [employer] Address [address] [place] [address] 7t [place] [address] Care Team Providers Care Production Corrugator Name Role Phone Unavailable Primary Care Provider Unavailabl e Reason for Visit * Reason Comments Med Refill Encounter Details Date Type Department Care Team (Late st Contact Info) Description 05/24/2023 Refill [facility] ADULT DENTAL [address] [place] [address] Chester Zuniga, DMD [address] [place] [address] Social History Tobacco Use Types Packs/Day Years [...]
--- OUTSIDE RECORDS SUMMARY | 2024-05-07 19:31 | XMS_ITS | Clinical Summary ---
Author Organization [employer] Address [address] [place] [address] [address]t [place] [address] Care Team Providers Care Hose Sprayer Name Role Phone Unavailable Primary Care Provider [...]
--- OUTSIDE RECORDS SUMMARY | 2024-05-07 19:31 | XMS_ITS | Encounter Summary ---
Author Organization [employer] Address [address] [place] [address] [address]t [place] [address] Care Team Providers Care Horse Rancher Name Role Phone Unavailable Primary Care Provider Unavailabl e Reason for Visit * Reason Comments Med Refill Encounter Details Date Type Department Care Team ([facility] st Contact Info) Description 11/17/2023 Refill [facility] ADULT DENTAL [address] [place] [address] Chester Zuniga DMD [address] [place] [address] Social History Tobacco Use Types Packs/Day Years [...]
== END 2024-05-07 08:22 | disposition home or self-care (01) ==
LOC: HO.LNP 08:21
PROVIDERS: PCP Internal Medicine
DX: R31.9 Hematuria, unspecified (principal); S39.012D Strain of muscle, fascia and tendon of lower back, subsequent encounter; R42 Dizziness and giddiness
CPT/HCPCS: 81003; 96127

== ENCOUNTER 2024-05-07 08:21 | Outpatient (AMB) | payer OTHER, SELFPAY ==
[2024-05-07 08:40] VITALS: BP 108/60; PULSE 54; RESP 18; TEMP 37.3; O2SAT 98; BMI 34.9
--- NOTE | 2024-05-07 08:40 | A.OFFPC_ITS ---
Vital Signs 05/07/24 08:40 Height 5 ft 6 in Weight 216 lb BMI 34.9 BP 108/60 Blood Pressure Location Lt brachial Position Sitting Respiration 18 Pulse 54 Pulse Source Pulse Oximeter Temp 99.2 F Temp Source Oral Pulse Oximetry (%) 98 Oxygen Delivery Method Room Air Intake Visit Reasons: Hematuria Children'S Entertainer Required: Yes Children'S Entertainer Language: Tracer Lathe Set Up Operator Name: Used tablet- Accompanied by: Self / Same As Patient Allergies No Known Allergies Allergy (Verified 05/07/24 09:10) Medication List - Last Reconciled 05/07/24 by ALEK Fernandez acetaminophen (Pain Relief Extra Strength (acetaminophen)) 500 mg PO Q6H PRN cyclobenzaprine 5 mg PO Q8H PRN fluocinolone acetonide oil 0.01% (DermOtic Oil) 5 drps otic (ears) BID 7 days naproxen 500 mg PO Q12H PRN Tobacco use date assessed: 05/07/24 Dental Screening Dental Screen Date: 05/07/24 Did you have a dental visit in the last 12 months?: Yes Did you have a dental problem in the last 6 months where you did not have access to dental care?: No Was dental information given to patient?: Patient has dentist HPI Hematuria HPI Details The is taking naproxen, he remembered that another time when he was taking the naproxen due to dental work. He had blood in his urine. The patient wants to note stating the if he goes up at certain feet, he gets dizzy--will send Dr. Munguia a message [facility] Medical History Transaminitis Class 2 obesity with body mass index (BMI) of 38.0 to 38.9 in adult Polyarthralgia Presbyopia Family history of thyroid disease Family history of hypertension Asthma Right hip pain Surgical History No significant past surgical history Family History Mother No problems noted. Father Pulmonary fibrosis Social History Housing: Apartment Alcohol intake: current Alcohol intake frequency: holidays/special occasions only Alcohol type: wine Comment: Rare Patient Tobacco Use Status: Former Tobacco user Tobacco use type: Cigarette e-Cigarette/Vaping Use: Never Used Second Hand Smoke Exposure: No service: No Current occupational status: employed Current occupational exposures/hazards: No Cognitive needs: No Hearing needs: No Vision needs: No Questionnaire PHQ-9 Over the last 2 weeks, how often have you been bothered by any of the following problems? 1. Little interest or pleasure in doing things: not at all 2. Feeling down, depressed, or hopeless: not at all 3. Trouble falling or staying asleep, or sleeping too much: not at all 4. Feeling tired or having little energy: not at all 5. Poor appetite or overeating: not at all 6. Feeling bad about yourself - or that you are a failure or have let yourself or your family down: not at all 7. Trouble concentrating on things, such as reading the newspaper or watching television: not at all 8. Moving or speaking so slowly that other people could have noticed. Or the opposite - being so fidgety or restless that you have been moving around a lot more than usual: not at all 9. Thoughts that you would be better off or of hurting yourself in some way: not at all Total score: 0 Depression Screening Interpretation: Negative Depression Screening Done: Yes 33803 - PHQ-9 Billing: Yes Source: Developed by Drs. Walter Block, Jennifer Prieto, Arnoldo Young and colleagues, with an educational myla from [employer]. Thrive Questionnaire Date Thrive assessed: 05/07/24 I am a: Patient What is your living situation today?: I have a steady place to live Within the past 12 months, did the food you bought not last and you didn't have the money to get more?: Never true Within the past 12 months, did you worry whether your food would run out before you got money to buy more?: Never true Do you have trouble paying for medicines?: No Do you have trouble getting transportation to medical appointments?: No Do you have trouble paying your heating and electricity bill?: No Do you have trouble taking care of your child, family member or friend?: No Do you have trouble with day-to-day activities such as bathing, preparing meals, shopping, managing finances, etc.?: No Are you currently unemployed and looking for a job?: No Are you interested in more education?: No Please select the resources that you would like help with: None Currently or been in a relationship where the following occur: No concerns reported THRIVE Score: 0 AUDIT C Alcohol Use Questionnaire (AUDIT-C) 1. How often do you have a drink containing alcohol?: Never Total Score: 0 Score Reviewed/Action Taken: No ADELFO-7 AMB Questionnaire ADELFO-7 Date ADELFO - 7 assessed: 05/07/24 Feeling nervous, anxious, or on edge: 0 = Not at all Not being able to stop or control worryin = Not at all Worrying too much about different things: 0 = Not at all Trouble relaxin = Not at all Being so restless that it is hard to sit still: 0 = Not at all Becoming easily annoyed or irritable: 0 = Not at all Feeling afraid as if something awful might happen: 0 = Not at all Total ADELFO-7 score (0-4 normal; 5-9 mild; 10-14 moderate; 15-21 severe): 0 Source: Developed by Drs. Walter Block, Jennifer Prieto, Arnoldo Young and colleagues, with an educational myla from [employer]. ADELFO-7 Assessment Billing ADELFO-7 Assessment Tool: ADELFO-7 Assessment 66115 Physical exam (Primary Care) Vital Signs: Last Vital Signs Temp 99.2 F 05/07/24 08:40 Pulse 54 05/07/24 08:40 Resp 18 05/07/24 08:40 BP 108/60 05/07/24 08:40 Pulse Ox 98 05/07/24 08:40 Oxygen Delivery Method Room Air 05/07/24 08:40 BMI result Body Mass Index 34.9 Tobacco/Smoking Status: Tobacco use Status Tobacco use date assessed 05/07/24 05/07/24 08:43 Patient Tobacco Use Status Former Tobacco user 05/07/24 08:43 Tobacco use type Cigarette 05/07/24 08:43 e-Cigarette/Vaping Use Never Used 05/07/24 08:43 PHQ-9: PHQ-9 Score PHQ-9: Total score 0 05/07/24 09:15 Depression Screening Interpretation: Negative Thrive Assessment: Date of Thrive Assessment Date Thrive assessed 05/07/24 05/07/24 08:43 Currently or been in a relationship where the following occur: No concerns r eported Results AMB Urinalysis, Automated UA Leukoctes 0 Hilaria/uL Last Edit by Kori Riley, MARCOS on 05/07/24 09:07 UA Nitrite Negative Last Edit by Kori Riley, ASSOCIATE BROKER on 05/07/24 09:07 UA Urobilinogen 0.2 mg/dL Last Edit by Kori Riley, MARCOS on 05/07/24 09:07 UA Protein 1 mg/dL Last Edit by Kori Riley, ASSOCIATE BROKER on 05/07/24 09:07 UA pH 6.0 Last Edit by Kori Riley, MARCOS on 05/07/24 09:07 UA Blood 1 David/uL Last Edit by Kori Riley, MARCOS on 05/07/24 09:07 UA Specific Alpine 1.030 Last Edit by Kori Riley, MARCOS on 05/07/24 09:07 UA Ketone Negative Last Edit by Kori Riley, MARCOS on 05/07/24 09:07 UA Bilirubin 0 mg/dL Last Edit by Kori Riley, ASSOCIATE BROKER on 05/07/24 09:07 UA Glucose 0 mg/dL Last Edit by Kori Riley, MARCOS on 05/07/24 09:07 Results Reviewed Results Reviewed: Laboratory Last Values Urine pH (Auto) 6.0 05/07/24 08:54 Specific Alpine (Auto) 1.030 05/07/24 08:54 Urine Protein (Auto) 1 mg/dL 05/07/24 08:54 Glucose (UA)(Auto) 0 mg/dL 05/07/24 08:54 Urine Ketones (Auto) Negative 05/07/24 08:54 Urine Blood (Auto) 1 David/uL 05/07/24 08:54 Urine Nitrite (Auto) Negative 05/07/24 08:54 Urine Bilirubin (Auto) 0 mg/dL 05/07/24 08:54 Urine Urobilinogen (Auto) 0.2 mg/dL 05/07/24 08:54 Leukocyte Esterase (Auto) 0 Hilaria/uL 05/07/24 08:54 Coding Additional Codes ADELFO-7 Assessment Billing - ADELFO-7 Assessment Tool: ADELFO-7 Assessment 26433 ([id number]) PHQ-9 - 10702 - PHQ-9 Billing: Yes ([id number]) Assessment & Plan Assessment & Plan Orders: Orders AMB Urinalysis Automated Today R31.9 - Hematuria, unspecified UA CC w/rflx Micro + Cult 4 Weeks R31.9 - Hematuria, unspecified Medications: New diclofenac sodium 3% 1 appl topical BID 100 grams 0RF S39.012A - Strain of muscle, fascia and tendon of lower back, initial encounter Discontinued naproxen Discontinued Reason: Doctor's Order 500 mg PO Q12H PRN 20 tabs 0RF pain
--- OUTSIDE RECORDS SUMMARY | 2024-05-07 09:00 | XMS_ITS | Clinical Summary ---
Author Organization [employer] Address [address] [place] [address] [address]t [place] [address] Care Team Providers Care Metal Gauge Maker Name Role Phone Unavailable Primary Care Provider [...]
--- OUTSIDE RECORDS SUMMARY | 2024-05-07 09:01 | XMS_ITS | Encounter Summary ---
Author Organization [employer] Address [address] [place] [address] 7t [place] [address] Care Team Providers Care Piping Blocker Name Role Phone Unavailable Primary Care Provider Unavailabl e Reason for Visit * Reason Comments Med Refill Encounter Details Date Type Department Care Team ([facility] st Contact Info) Description 11/17/2023 Refill [facility] ADULT DENTAL [address] [place] [address] Chester Zuniga DMD [address] [place] [address] Social History Tobacco Use Types Packs/Day Years [...]
--- OUTSIDE RECORDS SUMMARY | 2024-05-07 09:01 | XMS_ITS | Encounter Summary ---
Author Organization [employer] Address [address] [place] [address] 7t [place] [address] Care Team Providers Care Quality Management Coordinator Name Role Phone Unavailable Primary Care Provider Unavailabl e Reason for Visit * Reason Comments Med Refill Encounter Details Date Type Department Care Team (Late st Contact Info) Description 05/24/2023 Refill [facility] ADULT DENTAL [address] [place] [address] Chester Zuniga, DMD [address] [place] [address] Social History Tobacco Use Types Packs/Day Years [...]
--- OUTSIDE RECORDS SUMMARY | 2024-05-07 09:01 | XMS_ITS | Encounter Summary ---
Author Organization [employer] Address [address] [place] [address] 7t [place] [address] Care Team Providers Care Case Assistant Name Role Phone Unavailable Primary Care Provider Unavailabl e Reason for Visit * Reason Comments Med Refill Encounter Details Date Type Department Care Team (Late st Contact Info) Description 07/30/2023 Refill [facility] ADULT DENTAL [address] [place] [address] Dominique Ronquillo DDS [address] [place] [address] Social History Tobacco Use Types Packs/Day Years [...]
== END 2024-05-07 10:16 | disposition home or self-care (01) ==
PROVIDERS: PCP Internal Medicine
DX: R31.9 Hematuria, unspecified (principal)

== ENCOUNTER 2024-06-24 08:16 | Outpatient (REF) | payer OTHER, SELFPAY ==
--- OUTSIDE RECORDS SUMMARY | 2024-06-24 08:38 | XMS_ITS | Encounter Summary ---
Author Organization [employer] Address [address] [place] [address] 7t [place] [address] Care Team Providers Care Printing Table Hand Name Role Phone Unavailable Primary Care Provider Unavailabl e Reason for Visit * Reason Comments Med Refill Encounter Details Date Type Department Care Team (Late st Contact Info) Description 05/24/2023 Refill [facility] ADULT DENTAL [address] [place] [address] Chester Zuniga, DMD [address] [place] [address] Social History Tobacco Use Types Packs/Day Years [...]
--- OUTSIDE RECORDS SUMMARY | 2024-06-24 08:38 | XMS_ITS | Encounter Summary ---
Author Organization [employer] Address [address] [place] [address] [address]t [place] [address] Care Team Providers Care Cement Paver Name Role Phone Unavailable Primary Care Provider Unavailabl e Reason for Visit * Reason Comments Med Refill Encounter Details Date Type Department Care Team (Late st Contact Info) Description 07/30/2023 Refill [facility] ADULT DENTAL [address] [place] [address] Dominique Ronquillo DDS [address] [place] [address] Social History Tobacco Use Types Packs/Day Years [...]
--- OUTSIDE RECORDS SUMMARY | 2024-06-24 08:38 | XMS_ITS | Encounter Summary ---
Author Organization [employer] Address [address] [place] [address] [address] [place] [address] Care Team Providers Care Form Tamper Operator Name Role Phone Unavailable Primary Care Provider Unavailabl e Reason for Visit * Reason Comments Med Refill Encounter Details Date Type Department Care Team ([facility] st Contact Info) Description 11/17/2023 Refill [facility] ADULT DENTAL [address] [place] [address] Chester Zuniga DMD [address] [place] [address] Social History Tobacco Use Types Packs/Day Years [...]
--- OUTSIDE RECORDS SUMMARY | 2024-06-24 08:38 | XMS_ITS | Clinical Summary ---
Author Organization [employer] Address [address] [place] [address] [address] [place] [address] Care Team Providers Care Hypercil Core Transformer Assembler Name Role Phone Unavailable Primary Care Provider [...]
[2024-06-24 09:24] LABS: Appearance Urine Clear; Color Urine Yellow; Glucose Urine UA Negative (Negative); Leukocyte Esterase Urine Negative (Negative); Nitrite Urine Negative (Negative); PH 5.5 (5.0-9.0); Specific Gravity - Urine >= 1.030 (1.005-1.025); UMIC TRIGGER UACC YES; Urine Blood Trace (Negative); Urine Ketones Trace mg/dL (Negative); Urine Protein Negative (Neg-Trace)
[2024-06-24 09:30] LABS: Bacteria Urine None Seen (None Seen); Hyaline Casts Urine 0-2 /LPF (0-2); RBC Urine 0-2 /HPF (0-2); Squamous Epithelial Cell Urine 0-2 /HPF (0-2); WBC Urine 0-5 /HPF (0-5)
== END 2024-06-24 08:17 | disposition home or self-care (01) ==
LOC: HO.LAB 08:16
PROVIDERS: PCP Internal Medicine
DX: R31.9 Hematuria, unspecified (principal)
CPT/HCPCS: 81001

== ENCOUNTER 2024-09-23 14:42 | Outpatient (AMB) | payer OTHER, SELFPAY ==
--- OUTSIDE RECORDS SUMMARY | 2024-09-23 15:15 | XMS_ITS | Clinical Summary ---
Author Organization [employer] Address [address] [place] [address] [address] [place] [address] Care Team Providers Care Field Horticultural Specialty Grower Name Role Phone Unavailable Primary Care Provider [...] Panel 1975 SDOH Screening 1975 Sigmoidoscopy 1975 Disability Screening 1975 Alcohol/Substance Use Screening 1987 Tobacco Screening 1987 Family Planning (PISQ) 07/07/1990 Hepatitis C Screening 07/07/1993 Hepatitis B Vaccines (1 of 3 - 19+ 3-dose series) 07/07/1994 COVID-19 Vaccine (3 - 2023- season) 2023 07/21/2020, 06/23/2020 Influenza Vaccine (#1) 2024 3, 12/08/2021, 12/08/2020, Additional history exists Zoster Vaccines [...] patient's age to complete this topic Meningococcal B Vaccine Aged Out No l onger eligible based on patient's age to complete this topic Meningococcal Vaccine Aged Out No lyndsay charisma eligible based on patient's age to complete this topic Pneumococcal Vaccine: Pediatrics (0 to 5 Years) and At-Risk Patients (6 to 49) Years Aged Out No longer eligible based on [...]
[2024-09-23 15:30] VITALS: BP 110/54; PULSE 60; TEMP 36.8; O2SAT 96; BMI 36.0
--- NOTE | 2024-09-23 15:30 | MHC.OFFWIV ---
Intake Vital Signs 09/23/24 15:30 Height 5 ft 6 in Weight 223 lb 2 oz BMI 36.0 BP 110/54 L Blood Pressure Location Rt brachial Position Sitting Pulse 60 Pulse Source Pulse Oximeter Temp 98.3 F Temp Source Oral Pulse Oximetry (%) 96 Oxygen Delivery Method Room Air Intake Visit Reasons: EP-lower back pain Patient Tobacco Use Status: Former Tobacco user Assistant Professor Of Biology Required: No Allergies No Known Allergies Allergy (Verified 05/07/24 09:10) Do you need a note to return to daycare/school/sports/work: Yes HPI HPI Comments History of Present Illness Details 49 y/o Male patient who presents to the walk in clinic with c/o Lower back pain since Monday. This past Monday he lifted his from bed to Bathroom and felt sharp pain lower back. Denies numbness or tingling. Denies bladder or bowel symptoms. [facility] Medical History (Updated 09/23/24 @ 16:22 by Antionette Huerta NP) Lumbar pain Transaminitis Class 2 obesity with body mass index (BMI) of 38.0 to 38.9 in adult Polyarthralgia Presbyopia Family history of thyroid disease Family history of hypertension Asthma Right hip pain Surgical History No significant past surgical history Family History Mother No problems noted. Father Pulmonary fibrosis Social History Housing: Apartment Alcohol intake: current Alcohol intake frequency: holidays/special occasions only Alcohol type: wine Comment: Rare Patient Tobacco Use Status: Former Tobacco user Tobacco use type: Cigarette e-Cigarette/Vaping Use: Never Used Second Hand Smoke Exposure: No service: No Current occupational status: employed Current occupational exposures/hazards: No Cognitive needs: No Hearing needs: No Vision needs: No Review of Systems Const All systems reviewed & are unremarkable except as noted in HPI and below Physical Exam Vital Signs: Last Vital Signs Temp 98.3 F 09/23/24 15:30 Pulse 60 09/23/24 15:30 BP 110/54 L 09/23/24 15:30 Pulse Ox 96 07/28/25 15:30 Oxygen Delivery Method Room Air 09/23/24 15:30 BMI result Body Mass Index 36.0 Const General: no acute distress; No comfortable Nutritional Appearance: obese Orientation/consciousness: patient oriented x3 Back/Spine/Pelvis Back: back tenderness Thoracic/Lumbar Spine: No mass, pain with thoraco-lumbar ROM, lumbar spinal tenderness and straight leg raise positive Neuro General: patient oriented x3, gait normal and moves all extremities Motor exam (neuro): 5/5 motor strength present throughout Psych Speech and movement: Normal speech and movement present Assessment & Plan Assessment & Plan (1) Lumbar pain: Code(s): M54.50 - Low back pain, unspecified Plan: Alternate between Acetaminophen and Ibuprofen Ordered Cyclobenzaprine Rest back; no heavy lifting Ice/Hot Medications: New ibuprofen 800 mg PO Q8H 30 tabs 0RF M54.50 - Low back pain, unspecified cyclobenzaprine 10 mg PO BEDTIME 14 tabs 0RF M54.50 - Low back pain, unspecified Discontinued acetaminophen (Pain Relief Extra Strength (acetaminophen)) Discontinued Reason: Patient Completed Course 500 mg PO Q6H PRN 120 tabs 0RF fever fluocinolone acetonide oil 0.01% (DermOtic Oil) Discontinued Reason: Patient Completed Course 5 drps otic (ears) BID 7 days 20 mL 0RF L29.9 - Pruritus, unspecified Coding Level of Care Code Est Pt Level 4 (19922) Diagnoses Lumbar pain M54.50 Time Spent (min) 20
== END 2024-09-23 16:25 | disposition home or self-care (01) ==
PROVIDERS: PCP Internal Medicine; Visit Provider Nurse Practitioner Family
DX: M54.50 Low back pain, unspecified (principal)

== ENCOUNTER 2024-12-19 08:26 | Outpatient (REF) | payer OTHER, SELFPAY ==
--- NOTE | ~2024-12-19 | XR_ITS ---
EXAMINATION: XR HAND, LEFT CLINICAL INFORMATION: M79.642 - Pain in left hand COMPARISON: None available. TECHNIQUE: PA, lateral, and oblique views of the left hand. FINDINGS: The bones and soft tissues are normal. No fracture. Alignment is anatomic. Joint spaces are maintained. No erosions or soft tissue calcifications. XR/XR hand LT 2V IMPRESSION: Normal left hand. Electronically signed by: Yue Whitlock MD 12/19/2024 09:44 AM EDT
== END 2024-12-19 08:27 | disposition home or self-care (01) ==
LOC: HO.XRAY 08:26
PROVIDERS: PCP Internal Medicine; Visit Provider Internal Medicine
DX: Z23 Encounter for immunization (principal); Z00.00 Encounter for general adult medical examination without abnormal findings; M79.642 Pain in left hand; L29.9 Pruritus, unspecified; H53.8 Other visual disturbances; R31.29 Other microscopic hematuria; Z79.899 Other long term (current) drug therapy
CPT/HCPCS: 73120; 90471; 90656; 96127

== ENCOUNTER 2024-12-19 08:26 | Outpatient (AMB) | payer OTHER, SELFPAY ==
--- NOTE | 2024-12-19 08:57 | A.OFFPC_ITS ---
Vital Signs 12/19/24 09:00 Height 5 ft 6 in Weight 218 lb 6 oz BMI 35.2 BP 120/70 Blood Pressure Location Lt brachial Position Sitting Pulse 55 Pulse Source Pulse Oximeter Temp 97.1 F Temp Source Temporal Artery Scan Pulse Oximetry (%) 97 Oxygen Delivery Method Room Air Intake Visit Reasons: Annual Exam Intake Note: Patient is here today for a physical. Pharmacy Services Director Required: No Senior It Assistant: Not Required per policy Accompanied by: Self / Same As Patient Allergies No Known Allergies Allergy (Verified 12/19/24 09:07) Medication List - Last Reconciled 12/19/24 by Isabella Kauffman MD cyclobenzaprine 10 mg PO BEDTIME ibuprofen 800 mg PO Q8H Tobacco use date assessed: 12/19/24 Dental Screening Dental Screen Date: 05/07/24 HPI HPI Comments History of Present Illness Details The patient is a 49-year-old male presenting for a physical examination and preventative care. During the visit, it was noted that the patient had blood in his urine during a previous laboratory test, prompting a repeat urinalysis to be ordered. The patient reports experiencing left hand pain, for which an X-ray has been sug gested to further evaluate the condition. The patient has a history of myopia and has requested a referral to ophthalmology for further evaluation. Preventative care measures discussed include a negative Cologuard test in 2022, with the next screening recommended in 2025, and a Tdap vaccination administered in 2020, with the next dose due in 2030. [facility] Medical History (Updated 12/19/24 @ 09:19 by Isabella Kauffman MD) Lumbar pain Transaminitis Class 2 obesity with body mass index (BMI) of 38.0 to 38.9 in adult Polyarthralgia Presbyopia Family history of thyroid disease Family history of hypertension Asthma Right hip pain Surgical History No significant past surgical history Family History Mother No problems noted. Father Pulmonary fibrosis Social History Housing: Apartment Alcohol intake: current Alcohol intake frequency: holidays/special occasions only Alcohol type: wine Comment: Rare Patient Tobacco Use Status: Former Tobacco user Tobacco use type: Cigarette e-Cigarette/Vaping Use: Never Used Second Hand Smoke Exposure: Yes service: No Current occupational status: employed Current occupational exposures/hazards: No Cognitive needs: No Hearing needs: No Vision needs: No Questionnaire PHQ-9 Over the last 2 weeks, how often have you been bothered by any of the following problems? 1. Little interest or pleasure in doing things: not at all 2. Feeling down, depressed, or hopeless: not at all 3. Trouble falling or staying asleep, or sleeping too much: not at all 4. Feeling tired or having little energy: not at all 5. Poor appetite or overeating: not at all 6. Feeling bad about yourself - or that you are a failure or have let yourself or your family down: not at all 7. Trouble concentrating on things, such as reading the newspaper or watching television: not at all 8. Moving or speaking so slowly that other people could have noticed. Or the opposite - being so fidgety or restless that you have been moving around a lot more than usual: not at all 9. Thoughts that you would be better off or of hurting yourself in some way: not at all Total score: 0 Depression Screening Interpretation: Negative Depression Screening Done: Yes 57170 - PHQ-9 Billing: Yes Source: Developed by Drs. Walter Block, Jennifer Prieto, Arnoldo Young and colleagues, with an educational myla from [employer]. Thrive Questionnaire Date Thrive assessed: 12/13/24 I am a: Patient What is your living situation today?: I have a steady place to live Within the past 12 months, did the food you bought not last and you didn't have the money to get more?: I choose not to answer this question Within the past 12 months, did you worry whether your food would run out before you got money to buy more?: I choose not to answer this question Do you have trouble paying for medicines?: No Do you have trouble getting transportation to medical appointments?: No Do you have trouble paying your heating and electricity bill?: No Do you have trouble taking care of your child, family member or friend?: No Do you have trouble with day-to-day activities such as bathing, preparing meals, shopping, managing finances, etc.?: No Are you currently unemployed and looking for a job?: No Are you interested in more education?: No Please select the resources that you would like help with: None Currently or been in a relationship where the following occur: No concerns reported THRIVE Score: 0 AUDIT C Alcohol Use Questionnaire (AUDIT-C) 1. How often do you have a drink containing alcohol?: Monthly or less 2. How many drinks containing alcohol do you have on a typical day when you are drinking?: 1 or 2 3. How often do you have six or more drinks on one occasion?: Never Total Score: 1 Score Reviewed/Action Taken: No ADELFO-7 AMB Questionnaire ADELFO-7 Date ADELFO - 7 assessed: 05/07/24 Feeling nervous, anxious, or on edge: 0 = Not at all Not being able to stop or control worryin = Not at all Worrying too much about different things: 0 = Not at all Trouble relaxin = Several days Being so restless that it is hard to sit still: 0 = Not at all Becoming easily annoyed or irritable: 0 = Not at all Feeling afraid as if something awful might happen: 0 = Not at all Total ADELFO-7 score (0-4 normal; 5-9 mild; 10-14 moderate; 15-21 severe): 1 Source: Developed by Drs. Walter Block, Jennifer Prieto, Arnoldo Young and colleagues, with an educational myla from [employer]. ADELFO-7 Assessment Billing ADELFO-7 Assessment Tool: ADELFO-7 Assessment 44744 Review of Systems Const All systems reviewed & are unremarkable except as noted in HPI and below Card Denies chest pain at rest, Denies chest pain with activity, Denies edema, Denies irregular heart rhythm, Denies claudication, Denies dyspnea, Denies dyspnea on exertion, Denies orthopnea, Denies paroxysmal nocturnal dyspnea and Denies slow heart rate Resp Denies cough, Denies dyspnea and Denies dyspnea on exertion Physical exam (Primary Care) Vital Signs: Last Vital Signs Temp 97.1 F 12/19/24 09:00 Pulse 55 12/19/24 09:00 BP 120/70 12/19/24 09:00 Pulse Ox 97 12/19/24 09:00 Oxygen Delivery Method Room Air 10/23/25 09:00 BMI result Body Mass Index 35.2 BMI Assessment/Plan discussion: High BMI High, discussed plan: lifestyle, weight reduction, dietary and physical activity Tobacco/Smoking Status: Tobacco use Status Tobacco use date assessed 12/19/24 12/19/24 09:05 Patient Tobacco Use Status Former Tobacco user 12/19/24 09:05 Tobacco use type Cigarette 12/19/24 09:05 e-Cigarette/Vaping Use Never Used 12/19/24 09:05 PHQ-9: PHQ-9 Score PHQ-9: Total score 0 12/19/24 09:12 Depression Screening Interpretation: Negative Thrive Assessment: Date of Thrive Assessment Date Thrive assessed 12/13/24 12/19/24 09:05 Currently or been in a relationship where the following occur: No concerns reported Resp Effort & Inspection: normal respiratory effort Auscultation: clear to auscultation bilaterally Cardio Jugular venous distension: no JVD Rate: regular rate Rhythm: regular rhythm Heart sounds: S1 normal heart sound present and S2 normal heart sound present Extrem General: Yes full ROM Office Procedures Flu Questionnaire Does the patient have a severe egg allergy?: No Does the patient have severe life threatening allergies?: No Does the patient have a fever or illness today?: No Has the patient ever had Guillain-Pangburn Syndrome?: No Has the patient ever had any past reaction to a flu shot?: No Immunizations Fluarix [id number] (PF) 45 mcg (15 mcg x 3)/0.5 mL IM syringe Performing Provider: Isabella Kauffman MD [place] [facility] [place] [facility] [place] [facility] Administered by: Mariajose Rea LPN on 12/19/24 09:14 Dose Route Admin Location Dispensed Lot Number Expiration Date NDC [employer] 0.5 mL IM Left Deltoid 0.5 mL [id number] 08/26/24 99135-758-73 [employer] VIS Given Date VIS Provided VIS Publication Date 12/19/24 Single Vaccine 24 Eligibility Eligibility Date Funding Source Not [facility] Eligible 12/19/24 Private Coding Level of Care Code Est Pt Level 4 (94164) Est Pt Prev Care 40-64y(67413) Diagnoses Physical exam Z00.00 Ear itch L29.9 Left hand pain M79.642 Blurry vision H53.8 Microscopic hematuria R31.29 Additional Codes PHQ-9 - 55825 - PHQ-9 Billing: Yes ([id number]) ADELFO-7 Assessment Billing - ADELFO-7 Assessment Tool: ADELFO-7 Assessment 45571 ([id number]) Time Spent (min) 40 Assessment & Plan Assessment & Plan (1) Physical exam: Code(s): Z00.00 - Encounter for general adult medical examination without abnormal findings Category: Medical (2) Ear itch: Code(s): L29.9 - Pruritus, unspecified Category: Medical (3) Left hand pain: Code(s): M79.642 - Pain in left hand Category: Medical (4) Blurry vision: Code(s): H53.8 - Other visual disturbances Category: Medical (5) Microscopic hematuria: Code(s): R31.29 - Other microscopic hematuria Category: Medical Plan Plan 1. Blood In Urine A repeat urinalysis is planned to investigate the presence of blood in the urine, as noted in previous laboratory results. 2. Left Hand Pain An X-ray of the left hand is recommended to assess the cause of the reported pain. 3. Myopia The patient has requested a referral to ophthalmology for further evaluation of his myopia. 4. Preventative Care: Colon Cancer Screening With Stool Test (Cologuard) The patient had a negative Cologuard test in 2022, with the next screening recommended in 2025. 5. Preventative Care: Tdap Vaccination The patient received a Tdap vaccination in 2020, with the next dose due in 2030. Orders: Orders Influenza [id number] Immunization Today Z23 - Encounter for immunization
[2024-12-19 09:00] VITALS: BP 120/70; PULSE 55; TEMP 36.2; O2SAT 97; BMI 35.2
== END 2024-12-19 09:23 | disposition home or self-care (01) ==
LOC: HO.HMCH 08:26
PROVIDERS: PCP Internal Medicine; Visit Provider Internal Medicine
DX: Z00.00 Encounter for general adult medical examination without abnormal findings (principal); L29.9 Pruritus, unspecified; M79.642 Pain in left hand; R31.29 Other microscopic hematuria; H53.8 Other visual disturbances; Z23 Encounter for immunization

== ENCOUNTER → 2024-12-19 09:35 | Outpatient (BNV) | payer OTHER, SELFPAY | PROVIDERS: PCP Internal Medicine; Visit Provider Radiology Diagnostic Radiology | DX: M79.642 Pain in left hand (principal) | CPT/HCPCS: 73120 ==